=== PATIENT | female | born 2000 | race Caucasian/White ===

== ENCOUNTER 2024-03-25 18:48 | Inpatient (IN) ==
--- NOTE | 2024-03-25 19:30 | Emergency Department Note ---
Impression & Plan Sepsis, Pyelonephritis, Leukocytosis ED Provider Note NAME: ANKUR HAIRSTON AGE: 23 SEX: F : 2000 ARRIVES VIA: Walk-In INFORMANT: Patient ED PROVIDER(S): Douglas Gaviira DO CHIEF COMPLAINT: abdominal pain HPI: Patient is a 23-year-old female who presents to the ER for abdominal pain. She notes on Sunday she started with some dysuria, urgency, and frequency. Has been intermittent. She saw [facility] yesterday and was started on Cipro. Her pain was focal in the belly on the left mid abdomen. Has rotated slightly to the right consequently she came in. She did have a fever of 100.7. Denies any headache or change in vision. No chest pain or shortness of breath. No other exacerbating or remitting factors. No vaginal bleeding vaginal discharge. ADDITIONAL HISTORY OBTAINED: Per HPI Chronic Medical/Social Conditions Affecting Care: Per HPI PAST MEDICAL HISTORY:See Below PAST SURGICAL HISTORY:See Below FAMILY HISTORY:See Below SOCIAL HISTORY:See Below HOME MEDICATIONS:See Below ALLERGIES:See Below VITALS:See Below PHYSICAL EXAMINATION: GENERAL: Sitting up in bed, alert, well appearing, well nourished, no distress, non-toxic EYE EXAM: normal conjunctiva. OROPHARYNX: mucous membranes are moist NECK: supple, no nuchal rigidity, no adenopathy, non-tender LUNGS: Clear to auscultation. Normal chest wall mechanics HEART: no murmurs, S1 normal and S2 normal ABDOMEN: abdomen soft, TTP in Left mid abd, normo-active bowel sounds, no masses, no rebound or guarding. BACK: Back is symmetrical on inspection and there is no deformity, no midline tenderness, no CVA tenderness. SKIN: no rashes and no bruising UPPER EXTREMITIES: upper extremities are grossly normal. LOWER EXTREMITIES: No pitting edema. NEURO EXAM: Normal sensorium, cranial nerves II-XII grossly intact, normal speech, no gross weakness of arms, no gross weakness of legs. MEDICAL DECISION MAKING: Patient is a 23-year-old female who presents ER for the above-stated complaint. IV was established and blood work was obtained. Currently she is taking Cipro for UTI. Back pain and flank pain is getting worse. She was tachycardic with heart rate in 130s. Labs show leukocytosis of 17.9. No significant anemia. BMP along LFTs bilirubin was unremarkable. Lipase was normal. Pro-Ameya elevated at 4.5. Additional UA was contaminated as it was not a clean-catch and additional UA was obtained for culture. Patient was treated with IV Zosyn due to allergy. CT confirmed pyelonephritis. Patient was updated at bedside. Discussed with the hospitalist for further evaluation management treatment. Consults/Care Managements Discussions: Per MDM Triage Nursing notes reviewed. Limited review of prior medical records performed Vital Signs: reviewed and remarkable for tachy Differential diagnosis: Differential diagnoses includes but is not limited to gastritis, peptic ulcer disease, GERD, gallbladder disease, pancreatitis, small bowel obstruction, appendicitis, diverticulitis, hernia, urinary tract infection, torsion, /ectopic (if female), perforation, trauma, infectious. ER treatment provided: See below Diagnostics interpreted by me include EKG and cardiac monitoring as listed below: -Cardiac Monitoring: An order was placed for continuous cardiac monitoring. The monitor shows a rate of 120 with sinus rhythm. -ECG: none -Laboratory studies:Interpreted by me as stated above in MDM and shown below. Imaging studies: Xrays: As interpreted by me:none CTs show: CT of the abdomen pelvis per my preliminary interpretation showed no obvious obstruction CT abdomen pelvis shows pyelonephritis per radiology Procedures:none Critical Care: None Past Med/Surg History Problem List (Updated 03/25/24 @ 22:04 by Douglas Gaviria DO) Leukocytosis (Acute) Pyelonephritis (Acute) Sepsis (Acute) Social History Smoking Status: Never smoker Feels Safe at Home: Yes Allergies Allergies Allergy/AdvReac Type Severity Reaction Status Date / Time ceftriaxone Allergy Swelling Verified 03/25/24 20:43 of Lip/Tongue/Throat Home Meds Home Medications Medication Instructions Recorded Confirmed ciprofloxacin HCl 500 mg tablet 500 mg PO BID 03/25/24 03/25/24 ondansetron HCl 4 mg tablet 4 mg PO UD PRN Nausea 03/25/24 03/25/24 Results & Data (ED) Vital Signs Vital Signs - 24 hr 03/25/24 19:03 03/25/24 19:21 03/25/24 19:26 Temperature 37.2 C 37.4 C Temperature Source Oral Oral Pulse Rate 139 H 121 H Pulse Rate [Apical] 110 H Pulse Rhythm [Apical] Respiratory Rate 19 14 Respiratory Effort / Characteristics Non-Labored Spontaneous Respiratory Depth Normal Respiratory Pattern Regular Blood Pressure 107/75 Blood Pressure [Right Arm] 104/65 Blood Pressure Mean 85 Blood Pressure Mean [Right Arm] 78 Blood Pressure Position [Right Arm] Semi-fowlers Pulse Oximetry 96 96 Oxygen Delivery Method Room Air Room Air Sepsis Recent Fever Within 48 Hours Yes Sepsis New/Unexplained Change in Mental Status N/A Sepsis Action Taken by Nursing No Action Required 03/25/24 19:26 03/25/24 20:32 03/25/24 21:00 Temperature 36.6 C Temperature Source Oral Pulse Rate 111 H Pulse Rate [Apical] 106 H 99 H Pulse Rhythm [Apical] Regular Respiratory Rate 12 16 16 Respiratory Effort / Characteristics Non-Labored Spontaneous Non-Labored Spontaneous Respiratory Depth Normal Normal Respiratory Pattern Regular Regular Blood Pressure Blood Pressure [Right Arm] 93/61 L 111/65 Blood Pressure Mean Blood Pressure Mean [Right Arm] 71 80 Blood Pressure Position [Right Arm] Sitting Semi-fowlers Pulse Oximetry 96 97 99 Oxygen Delivery Method Room Air Room Air Room Air Sepsis Recent Fever Within 48 Hours Sepsis New/Unexplained Change in Mental Status Sepsis Action Taken by Nursing Laboratory Data 03/25/24 19:25 03/25/24 19:25 Lab Results 03/25/24 Range/Units 19:25 WBC 17.96 H (4.8-10.8) K/ul RBC 4.36 (4.20-5.40) M/uL Hgb 13.3 (12.0-16.0) g/dl Hct 38.8 (37.0-47.0) % MCV 89.0 (80.0-100.0) fL MCH 30.5 (25.0-34.0) pg MCHC 34.3 (32.0-36.0) g/dL RDW Std Deviation 40.7 (36.4-46.3) fL RDW Coeff of Lizzeth 12.3 (11.5-14.5) % Plt Count 218 (130-400) K/uL MPV 10.6 (9.4-12.4) fL Immature Gran % (Auto) 0.8 % Neut % (Auto) 86.4 % Lymph % (Auto) 8.7 % [place] % (Auto) 3.6 % Eos % (Auto) 0.1 % Baso % (Auto) 0.4 % Neut # (Auto) 15.52 H (1.40-6.50) K/uL Lymph # (Auto) 1.56 (1.20-3.40) K/uL [place] # (Auto) 0.65 H (0.11-0.59) K/uL Eos # (Auto) 0.02 (0.00-0.50) K/uL Baso # (Auto) 0.07 (0.00-0.20) K/uL Immature Gran # (Auto) 0.14 (0.01-0.20) K/uL Sodium 133 L (136-145) mmol/L Potassium 4.0 (3.5-5.1) mmol/L Chloride 101 (98-107) mmol/L Carbon Dioxide 21 (21-32) mmol/L Anion Gap 11 (3-11) BUN 15 (6-23) mg/dl Creatinine 1.23 H (0.6-1.2) mg/dl Est Cr Clr Drug Dosing 58.3 ml/min eGFR 62.93 BUN/Creatinine Ratio 12.2 (10-20) Glucose 88 (70-99(Fasting)) mg/dl Calcium 9.1 (8.6-10.3) mg/dl Total Bilirubin 0.5 (0.2-1.0) mg/dl AST 16 (13-39) U/L ALT 12 (7-52) U/L Alkaline Phosphatase 41 (34-104) U/L Total Protein 7.1 (6.0-8.3) gm/dl Albumin 3.6 (3.4-5.0) gm/dl Globulin 3.5 (2.5-4.0) gm/dl Albumin/Globulin Ratio 1.0 (0.9-2) Lipase 7 L (11-82) U/L Procalcitonin 4.69 H (0-0.5) ng/ml Urine Color Yellow Urine Appearance Cloudy A (Clear) Urine pH 6.0 (4.5-7.5) Ur Specific [place] 1.027 (1.000-1.030) Urine Protein 3+ H (Negative) Urine Glucose (UA) Negative (Negative) Urine Ketones 2+ H (Negative) Urine Blood 3+ H (Negative) Urine Nitrite Negative (Negative) Urine Bilirubin Negative (Negative) Urine Urobilinogen Positive H (Negative) Ur Leukocyte Esterase Trace H (Negative) Urine WBC (Auto) 11-20 H (0-5) /hpf Urine RBC (Auto) >20 H (0-2) /hpf U Hyaline Cast (Auto) 3-5 H (0-2) /lpf U Epithel Cells (Auto) 3-5 H (0-2) /hpf Urine Bacteria (Auto) None Seen (None Seen) Administered Medications Discontinued Medications Sodium Chloride (Nss) 1,000 mls @ 999 mls/hr IV .Q1H1M MARISOL Stop: 03/25/24 21:15 Last Admin: 03/25/24 20:35 Dose: 999 mls/hr Documented By: Infusion: 03/25/24 20:35 Dose: Infused Documented By: Admin: 03/25/24 19:45 Dose: 999 mls/hr Documented By: EMERY Ceftriaxone Sodium (Rocephin) 2,000 mg in 50 mls @ 100 mls/hr IV NOW STA Stop: 03/25/24 20:25 Last Admin: 03/25/24 20:43 Dose: Not Given Documented By: CL Piperacillin Sod/Tazobactam Sod (Zosyn) 4.5 gm in 100 mls @ 200 mls/hr IV NOW ONE; Protocol Stop: 03/25/24 21:17 Last Admin: 03/25/24 21:15 Dose: 200 mls/hr Documented By: EMERY Ioversol (Optiray 320 100ml) 93 ml IV ONCE ONE Stop: 03/25/24 20:11 Last Admin: 03/25/24 20:11 Dose: 93 ml Documented By: SHARI Ketorolac Tromethamine (Ketorolac Tromethamine 15 Mg/Ml Vial) 10 mg IV NOW ONE Stop: 03/25/24 19:28 Last Admin: 03/25/24 20:34 Dose: Not Given Documented By: CL Imaging Data Radiologist's Impression: Abdomen/Pelvis CT 03/25/24 19:09 Exam(s): CT ABDOMEN + PELVIS With Contrast IV Amt: 93 ml optiray 320 EXAM: CT Abdomen and Pelvis With Intravenous Contrast CLINICAL HISTORY: Reason for exam: flank pain. TECHNIQUE: Axial computed tomography images of the abdomen and pelvis with intravenous contrast. CTDI is 8.01 mGy and DLP is 390.77 mGy-cm. Automated exposure control was utilized for the study. A dose lowering technique was utilized adhering to the principles of ALARA. CONTRAST: Patient received 93 ml optiray 320 of IV contrast COMPARISON: No relevant prior studies available. FINDINGS: Lung bases: Unremarkable. No mass. No consolidation. ABDOMEN: Liver: Unremarkable. No mass. Gallbladder and bile ducts: Unremarkable. No calcified stones. No ductal dilation. Pancreas: Unremarkable. No mass. No ductal dilation. Spleen: Unremarkable. No splenomegaly. Adrenals: Unremarkable. No mass. Kidneys and ureters: There is heterogenous enhancement of the left kidney with slight surrounding edema suspicious for pyelonephritis. There is a nonobstructive 2 mm calyceal calculus in the lower pole the left kidney. Stomach and bowel: Unremarkable. No obstruction. No mucosal thickening. PELVIS: Appendix: No findings to suggest acute appendicitis. Bladder: Unremarkable. No mass. Reproductive: Unremarkable as visualized. ABDOMEN and PELVIS: Intraperitoneal space: Unremarkable. No free air. No significant fluid collection. Bones/joints: No acute fracture. No dislocation. Soft tissues: Unremarkable. Vasculature: Unremarkable. No abdominal aortic aneurysm. Lymph nodes: Unremarkable. No enlarged lymph nodes. IMPRESSION: There is heterogenous enhancement of the left kidney with slight surrounding edema suspicious for pyelonephritis. Electronically signed by: Harry Boyd MD 03/25/24 21:23 PM Discharge Plan Visit Data Chief Complaint: Flank Pain Stated Complaint: LT FLANK MOVED TO RT, UTI RECENTLY DIAGNOSED ED Provider: Douglas Gaviria Discharge Problem: Sepsis, Pyelonephritis, Leukocytosis Forms Stand Alone Forms: [facility] Prescriptions Prescriptions: No Action ondansetron HCl 4 mg tablet 4 mg PO UD PRN (Reason: Nausea) ciprofloxacin HCl 500 mg tablet 500 mg PO BID Referrals Referrals: PCP,NO [Physician] - Discharge Problem: Sepsis Qualifiers: Sepsis type: sepsis due to unspecified organism Sepsis acute organ dysfunction status: unspecified Qualified Code(s): A41.9 - Sepsis, unspecified organism Leukocytosis Qualifiers: Leukocytosis type: unspecified Qualified Code(s): D72.829 - Elevated white blood cell count, unspecified
[2024-03-25] MEDS: SODIUM CHLORIDE 0.9% 1,000 ML IV SCH (19:45)
[2024-03-25 19:46] LABS: Basophils # (auto) 0.07 K/uL (0.00-0.20); Basophils % (auto) 0.4 %; Eosinophils # (auto) 0.02 K/uL (0.00-0.50); Eosinophils % (auto) 0.1 %; Hematocrit (blood only) 38.8 % (37.0-47.0); Hemoglobin 13.3 g/dl (12.0-16.0); Immature Granulocytes # (auto) 0.14 K/uL (0.01-0.20); Immature Granulocytes % (auto) 0.8 %; Lymphocytes # (auto) 1.56 K/uL (1.20-3.40); Lymphocytes % (auto) 8.7 %; Mean Corpuscular Hemoglobin 30.5 pg (25.0-34.0); Mean Corpuscular Hgb Conc 34.3 g/dL (32.0-36.0); Mean Platelet Volume 10.6 fL (9.4-12.4); Monocytes # (auto) 0.65 K/uL (0.11-0.59); Monocytes % (auto) 3.6 %; Neutrophils # (auto) 15.52 K/uL (1.40-6.50); Neutrophils % (auto) 86.4 %; Platelet Count 218 K/uL (130-400); RDW Coefficient of Variation 12.3 % (11.5-14.5); RDW Standard Deviation 40.7 fL (36.4-46.3); Red Blood Count 4.36 M/uL (4.20-5.40); White Blood Count 17.96 K/ul (4.8-10.8)
[2024-03-25 19:47] LABS: Appearance Urine Cloudy (Clear); Bacteria Urine Automated None Seen (None Seen); Bilirubin Urine Negative (Negative); Blood Urine 3+ (Negative); Color Urine Yellow; Glucose Urine UA Negative (Negative); Ketones Urine 2+ (Negative); Leukocyte Esterase Urine Trace (Negative); Nitrite Urine Negative (Negative); Protein Urine 3+ (Negative); RBC Urine Automated >20 /hpf (0-2); Specific Gravity Urine 1.027 (1.000-1.030); Urobilinogen Urine Positive (Negative)
[2024-03-25 20:03] LABS: Albumin Level 3.6 gm/dl (3.4-5.0); BUN Creatinine Ratio 12.2 (10-20); Bilirubin,Total 0.5 mg/dl (0.2-1.0); Calcium 9.1 mg/dl (8.6-10.3); Creatinine Clr Calc Pharmacy 58.3 ml/min; Globulin 3.5 gm/dl (2.5-4.0); Total Protein 7.1 gm/dl (6.0-8.3)
[2024-03-25] MEDS: OPTIRAY 320 100ml IV ONE (20:11)
[2024-03-25] MEDS: KETOROLAC TROMETHAMINE 15 MG/ML VIAL IV ONE (20:34)
[2024-03-25] MEDS: cefTRIAXone SODIUM 2,000 MG/50 ML BAG IV STA (20:34)
[2024-03-25] MEDS: PIPERACILLIN/TAZOBACTAM 4.5 GM/100 ML BAG IV ONE (21:15)
--- NOTE | 2024-03-25 21:24 | CT Scan Report ---
Exam(s): CT ABDOMEN + PELVIS With Contrast IV Amt: 93 ml optiray 320 EXAM: CT Abdomen and Pelvis With Intravenous Contrast CLINICAL HISTORY: Reason for exam: flank pain. TECHNIQUE: Axial computed tomography images of the abdomen and pelvis with intravenous contrast. CTDI is 8.01 mGy and DLP is 390.77 mGy-cm. Automated exposure control was utilized for the study. A dose lowering technique was utilized adhering to the principles of ALARA. CONTRAST: Patient received 93 ml optiray 320 of IV contrast COMPARISON: No relevant prior studies available. FINDINGS: Lung bases: Unremarkable. No mass. No consolidation. ABDOMEN: Liver: Unremarkable. No mass. Gallbladder and bile ducts: Unremarkable. No calcified stones. No ductal dilation. Pancreas: Unremarkable. No mass. No ductal dilation. Spleen: Unremarkable. No splenomegaly. Adrenals: Unremarkable. No mass. Kidneys and ureters: There is heterogenous enhancement of the left kidney with slight surrounding edema suspicious for pyelonephritis. There is a nonobstructive 2 mm calyceal calculus in the lower pole the left kidney. Stomach and bowel: Unremarkable. No obstruction. No mucosal thickening. PELVIS: Appendix: No findings to suggest acute appendicitis. Bladder: Unremarkable. No mass. Reproductive: Unremarkable as visualized. ABDOMEN and PELVIS: Intraperitoneal space: Unremarkable. No free air. No significant fluid collection. Bones/joints: No acute fracture. No dislocation. Soft tissues: Unremarkable. Vasculature: Unremarkable. No abdominal aortic aneurysm. Lymph nodes: Unremarkable. No enlarged lymph nodes. IMPRESSION: There is heterogenous enhancement of the left kidney with slight surrounding edema suspicious for pyelonephritis. Electronically signed by: Harry Boyd MD 03/25/24 21:23 PM
[2024-03-25] MEDS ORDERED: POLYETHYLENE (MIRALAX) 17 GM PACK PO PRN (21:45)
[2024-03-25] MEDS ORDERED: MELATONIN 3 MG TAB PO PRN (21:45)
[2024-03-25] MEDS ORDERED: diphenhydrAMINE 50 MG/ML VIAL IV PRN (21:56)
--- NOTE | 2024-03-25 22:01 | History & Physical Report ---
Date of Service March 25, 2024 Assessment & Plan (1) Pyelonephritis: Plan: Pt is a 23 yo female with no significant PMH presenting to the hospital due to left flank pain. Sepsis secondary to pyelonephritis - pt with ongoing symptoms since Sunday; s/p outpatient cipro x1 day - on admission, pt with leukocytosis to 17, tachycardic originally to the 130s and down to the 90s after 2L of fluid, afebrile; lab work also significant for procal 4.69, lactate ordered on admission - CTAP showing enhancement of the left kidney consistent with pyelo - UA showing neg LE, no bacteria, 2+ blood; urine culture pending - blood cultures ordered (although collected after pt received ABX) - s/p zosyn x1; will continue upon admission (pt allergic to ceftriaxone) pending urine culture results - ordered another 1L for pt d/t ongoing tachycardia upon admission, encourage PO fluids TSERING - no prior blood work for review, but suspect pt with normal baseline kidney function - Cr 1.24 on admission; suspect pre-renal secondary to poor PO intake and infection as above - s/p 3L NS as above; encouraged PO intake - recheck BMP in AM Diet: regular Code: full VTE ppx: low risk- deferred Dispo: admit to med/surg (2) Sepsis: (3) TSERING (acute kidney injury): History of Present Illness Chief Complaint: left flank pain Primary Care Provider: [facility] Pt is a 23 yo female with no significant PMH presenting to the hospital due to left flank pain. Pt notes her symptoms began Sunday with fevers, chills, urinary burning/frequency, and left sided flank/abdominal pain. It continued through Sunday and Sunday which prompted her to seek care at [facility]. There, she gave a urine sample and was diagnosed with a kidney infection. She was given cipro. She has been taking that with improvement in her urinary symptoms but she noted her abdominal pain spread to her right side which prompted her to seek care at the ER. She notes a poor appetite over the last few days. She notes she has no significant PMH and only takes an OCP on a daily basis. In the ER, pt was given 2L of NS, zosyn x1, and toradol x1. Allergies Allergy/AdvReac Type Severity Reaction Status Date / Time ceftriaxone Allergy Swelling Verified 03/25/24 20:43 of Lip/Tongue/Throat Home Medications Medication Instructions Recorded Confirmed Type ciprofloxacin HCl 500 mg tablet 500 mg PO BID 03/25/24 03/25/24 History ondansetron HCl 4 mg tablet 4 mg PO UD PRN Nausea 03/25/24 03/25/24 History Past Med/Surg History Problem List (Updated 03/25/24 @ 22:16 by Rain Mendoza DO) TSERING (acute kidney injury) Leukocytosis (Acute) Pyelonephritis (Acute) Sepsis (Acute) Social History Smoking Status: Never smoker Second Hand Exposure: No; Do You Dip or Chew Tobacco: No; Tobacco Cessation Education Requested by Patient: No Hx Alcohol Use: Yes Alcohol type: wine Hx Substance Use: No Preferred Language: Urdu Communication Ability: Effective Mechanist Required: No Beliefs That Will Affect Care: None Current Living Situation: Other Current Living Situation Comment: [place] campus with roomate Other Information That Helps Us Care for You: No Feels Safe at Home: Yes Safety Concerns: Feels Safe At This Time Assistive Devices: None Review of Systems Review of Systems: As per HPI Physical Exam Constitutional: NAD, tachycardic. Eyes: Conjunctivae normal. Respiratory: CTA bilaterally. Non labored breathing. No rhonchi, wheezing, or crackles. Cardiovascular: RRR. No murmurs noted. No LE edema. Gastrointestinal (Abdomen): Nontender, +BS. No masses noted. Left tin's sign positive. Skin: No rashes or skin lesions noted. Neurologic: Sensation grossly intact. No FND appreciated. Psychiatric: Speech of normal pace and content. Mood and affect congruent. Results & Data Results & Data Vital Signs (Past 12 Hours) Vital Signs Temp Pulse Pulse Resp BP BP Pulse Ox 03/25/24 21:00 99 H 16 111/65 99 03/25/24 20:32 36.6 C 106 H 16 93/61 L 97 03/25/24 19:26 111 H 12 96 03/25/24 19:26 37.4 C 110 H 14 104/65 96 03/25/24 19:21 121 H 03/25/24 19:03 37.2 C 139 H 19 107/75 96 O2 Del Method 03/25/24 21:00 Room Air 03/25/24 20:32 Room Air 03/25/24 19:26 Room Air 03/25/24 19:26 Room Air 03/25/24 19:21 03/25/24 19:03 Room Air Supervising Physician Co-Signing Physician Notes Attending addendum: I have physically seen this patient, have supervised the medical residents activities, and agree with the H&P unless as otherwise noted. Assessment and Plan: Sepsis secondary to left sided pyelonephritis- Follow urine culture sensitivity Completed 1 day of outpatient ciprofloxacin CT scan with left-sided pyelonephritis Status post normal saline 2 L bolus in the ED Give additional 1 L normal saline bolus now Status post Zosyn 4.5 g IV from the ED, given due to allergic reaction history to ceftriaxone Continue Zosyn 4.5 g IV every 8 hours Renal insufficiency- Creatinine 1.23 on admission, with no baseline for comparison Status post 3 L normal saline bolus in total Repeat BMP in the a.m. Resident Activity Tracking Resident Involvement: Resident Care Provided Care Provided: Adult Hospital Medicine (2) Sepsis Sepsis acute organ dysfunction status: unspecified Sepsis type: sepsis due to unspecified organism Qualified Code(s): A41.9 - Sepsis, unspecified organism
[2024-03-25 22:17] LABS: Appearance Urine Clear (Clear); Bacteria Urine Automated None Seen (None Seen); Bilirubin Urine Negative (Negative); Blood Urine 2+ (Negative); Cast Urine Automated 0-2 /lpf (0-2); Color Urine Yellow; Epithelial Cell Urine Auto 0-2 /hpf (0-2); Glucose Urine UA Negative (Negative); Ketones Urine 2+ (Negative); Leukocyte Esterase Urine Negative (Negative); Nitrite Urine Negative (Negative); Protein Urine 2+ (Negative); Specific Gravity Urine > 1.045 (1.000-1.030); Urobilinogen Urine Negative (Negative); pH Urine 5.5 (4.5-7.5)
[2024-03-25] MEDS: SODIUM CHLORIDE 0.9% 1,000 ML IV ONE (22:57)
[2024-03-25 23:10] LABS: Pregnancy Test, Urine Negative (Negative)
[2024-03-25 23:50] VITALS: PULSE 83; RESP 16; O2SAT 98
[2024-03-26] MEDS: ACETAMINOPHEN 325 MG TAB PO PRN (00:02)
[2024-03-26] MEDS: PIPERACILLIN/TAZOBACTAM 4.5 GM/100 ML BAG IV SCH (01:55)
--- NOTE | 2024-03-26 05:11 | Billing Data ---
Date of Service March 26, 2024 Coding Level of Care Code 78959 INT INP/OBS CARE
[2024-03-26] MEDS: ONDANSETRON INJ 2 MG/ML 2 ML VIAL IV PRN (05:49)
[2024-03-26 07:51] VITALS: BP 107/71
[2024-03-26 08:07] LABS: Hematocrit (blood only) 33.6 % (37.0-47.0); Hemoglobin 11.1 g/dl (12.0-16.0); Mean Corpuscular Hemoglobin 29.9 pg (25.0-34.0); Mean Corpuscular Volume 90.6 fL (80.0-100.0); Mean Platelet Volume 10.3 fL (9.4-12.4); Platelet Count 190 K/uL (130-400); RDW Coefficient of Variation 12.6 % (11.5-14.5); RDW Standard Deviation 41.9 fL (36.4-46.3); Red Blood Count 3.71 M/uL (4.20-5.40); White Blood Count 11.97 K/ul (4.8-10.8)
[2024-03-26 08:35] LABS: BUN Creatinine Ratio 10.6 (10-20); Calcium 8.1 mg/dl (8.6-10.3); Creatinine Clr Calc Pharmacy 70.5 ml/min; Potassium 3.8 mmol/L (3.5-5.1)
[2024-03-26] MEDS: PATIENT'S OWN ORAL CONTRACEPTIVE PO SCH (09:32)
--- NOTE | 2024-03-26 09:33 | Discharge Summary ---
Date of Service March 26, 2024 Admission HPI Per Admitting Provider Pt is a 23 yo female with no significant PMH presenting to the hospital due to left flank pain. Pt notes her symptoms began Sunday with fevers, chills, urinary burning/frequency, and left sided flank/abdominal pain. It continued through Sunday and Sunday which prompted her to seek care at [facility]. There, she gave a urine sample and was diagnosed with a kidney infection. She was given cipro. She has been taking that with improvement in her urinary symptoms but she noted her abdominal pain spread to her right side which prompted her to seek care at the ER. She notes a poor appetite over the last few days. She notes she has no significant PMH and only takes an OCP on a daily basis. In the ER, pt was given 2L of NS, zosyn x1, and toradol x1. Admission Exam Per Admitting Provider Constitutional: NAD, tachycardic. Eyes: Conjunctivae normal. Respiratory: CTA bilaterally. Non labored breathing. No rhonchi, wheezing, or crackles. Cardiovascular: RRR. No murmurs noted. No LE edema. Gastrointestinal (Abdomen): Nontender, +BS. No masses noted. Left tin's sign positive. Skin: No rashes or skin lesions noted. Neurologic: Sensation grossly intact. No FND appreciated. Psychiatric: Speech of normal pace and content. Mood and affect congruent. Principal Diagnosis Pyelonephritis Discharge Exam Constitutional: well-appearing, no acute distress HEENT: NCAT, no conjunctival injection CV: clinically well perfused Resp: no increased WOB GI: nondistended MSK: no gross deformities appreciated Skin: warm, dry, no rash appreciated Neuro: alert, oriented, no focal neurologic deficit appreciated Discharge Data Allergies Allergy/AdvReac Type Severity Reaction Status Date / Time ceftriaxone Allergy Swelling Verified 03/25/24 20:43 of Lip/Tongue/Throat Consultations 03/25/24 21:21 ED Decision to Admit Stat Ordered Studies 03/25/24 19:09 CT abd pelvis IV con only Stat Hospital Course (1) Pyelonephritis: Pt is a 23 yo female with no significant PMH presenting to the hospital due to left flank pain. Sepsis secondary to pyelonephritis - pt with ongoing symptoms since Sunday; s/p outpatient cipro x1 day - on admission, pt with leukocytosis to 17, tachycardic originally to the 130s and down to the 90s after 2L of fluid, afebrile; lab work also significant for procal 4.69, lactate ordered on admission - CTAP showing enhancement of the left kidney consistent with pyelo - UA showing neg LE, no bacteria, 2+ blood; urine culture pending - blood cultures ordered (although collected after pt received ABX) - s/p zosyn x1; will continue upon admission (pt allergic to ceftriaxone) pending urine culture results Will discharge with Augmentin 875 for additional 9 days to complete 10 day cours e of abx TSERING Improved after fluid resuscitation (2) Sepsis: (3) TSERING (acute kidney injury): Total Time Total Time Spent Total Time Spent (In Minutes): <30 Discharge Plan Discharge Items Patient Disposition: Home - Self-Care Reason For Visit: PYELO Discharge Diagnosis: Pyelonephritis Activity: Resume your previous activity Non-emergency contact: Primary Care Provider Call non-emergency contact if: you have any medication questions, your symptoms worsen and you have a fever Follow-up/Referrals: [facility] [Primary Care Provider] - Diet: Regular Addtl Attending Provider Instructions: You were admitted to the hospital for urinary symptoms and fever. You were treated with antibiotics for a kidney infection and fluids for kidney injury. You willl be discharged with an additional 9 days of antibiotics. A discharge summary will be sent to your primary care physician to ensure continuity of care. Please bring this discharge summary with you to your next office appointment so that your provider can review it at that time. Follow-up appointments: Make a follow-up appointment with your PCP within the next week. It is very important that you follow up with them shortly after discharge from the hospital. Keep all your follow-up appointments as already scheduled. If you cannot make an appointment, notify your provider. Medications: Your medication list has been reviewed and reconciled upon discharge to ensure accuracy and continuity of care. An updated list of all your medications is included with your hospital discharge paperwork. Please review this list closely, and make note of any changes. We sent a new medication called Augmentin (amoxicillin-clavulanate) to your pharmacy. Take Augmentin (875mg) one tablet twice daily 9 days. If you have any issues filling these prescriptions, please call [phone] and ask to leave a message for Dr. Ganesh Sheth. Take your medications as instructed; do not skip a dose of your medicines. Make sure all of your doctors know every medicine you are taking (including grud-rjl-evqcidw medicines, vitamins, and supplements). Call your primary care provider before taking any new medicines (including dumt-foo-lhqkekt medicines, vitamins, and supplements), because some of these may interact with your current medications, or may make your symptoms worse. Tell your primary care provider if you cannot afford your medications. CONTACT YOUR PRIMARY CARE PROVIDER if you experience any of the following: Fever Increased pain Difficulty following your treatment plan, or difficulty taking medications CALL 911 OR GO TO THE EMERGENCY DEPARTMENT if you experience any of the f ollowing: Sudden, severe abdominal pain or nausea/vomiting Severe chest pain, or chest pain that radiates (moves) to your jaw or arm Sudden, severe shortness of breath or difficulty breathing Thank you for allowing us to participate in your care. Pending Studies at Discharge: No Stand-Alone Forms: My [facility] Medications and DC Order Prescriptions: New amoxicillin-pot clavulanate 875-125 mg tablet 1 tab PO BID Qty: 18 0RF Continued ondansetron HCl 4 mg tablet 4 mg PO UD PRN (Reason: Nausea) Discontinued ciprofloxacin HCl 500 mg tablet 500 mg PO BID Discharge Orders: Discharge Order (Routine); Ordered 03/26/24 Ordered By: Ganesh Cuevas/Other Patient Handouts: UTIs, ED Kidney Infection (Adult Female) Admission Data Admit Date/Time: 03/25/24 21:45 Attending Provider: Douglas Jose Admit Provider: Rain Mendoza Primary Care Provider: [facility] Other Providers: Dawson Serrato Other Interventions: Discharge Summary Assessment (RN) Last Done: 03/26/24 12:48 Supervising Physician Co-Signing Physician Notes I personally examined the patient and verified all gale points of history and exam, discussed case, and agree with decision making with Dr Sheth feeling better feels up to going home, answered all questions to the best of my ability vitals noted nad heent nc at mmm breathing unlabored no accessory muscles good e ffort skin no rashes no pallor or icterus pyelonephritis w sepsis POA - now doing better, sepsis resolved. cultures negative thus far - d/w pt anticipate high prob they'll be negative due to being on cipro before. (also admitting noted abx here started first adding to prob of no growth) -> d/w pt possibility of bacteria resistant to cipro vs just septic process getting worse before better - > but more prudent to adjust abx mechanism. feels good to go home - home on augmentin. f/u if worsening. outlined typical course of improvement after pyelo. otherwise as above Resident Activity Tracking Resident Involvement: Resident Care Provided Care Provided: Adult Hospital Medicine
[2024-03-26 11:49] VITALS: TEMP 99.1
--- NOTE | 2024-03-26 18:07 | Billing Data ---
Date of Service March 26, 2024 Coding Level of Care Code 81388 IN/OBS DISCH 30 MIN/LESS
== END 2024-03-26 13:52 | disposition home or self-care (01) | DRG 872 ==
LOC: ED 18:48 → 3N 21:45 → SUATTDRO 21:45 → 3N 23:01

== ENCOUNTER 2024-06-23 01:03 | Inpatient (IN) ==
[2024-06-23] MEDS: ONDANSETRON INJ 2 MG/ML 2 ML VIAL IV STA (01:29)
[2024-06-23] MEDS: SODIUM CHLORIDE 0.9% 1,000 ML IV ONE (01:29)
[2024-06-23 01:47] LABS: Basophils # (auto) 0.05 K/uL (0.00-0.20); Basophils % (auto) 0.3 %; Eosinophils # (auto) 0.11 K/uL (0.00-0.50); Eosinophils % (auto) 0.6 %; Hematocrit (blood only) 37.2 % (37.0-47.0); Hemoglobin 12.6 g/dl (12.0-16.0); Immature Granulocytes # (auto) 0.13 K/uL (0.01-0.20); Immature Granulocytes % (auto) 0.7 %; Lymphocytes # (auto) 1.55 K/uL (1.20-3.40); Lymphocytes % (auto) 8.5 %; Mean Corpuscular Hemoglobin 29.4 pg (25.0-34.0); Mean Corpuscular Hgb Conc 33.9 g/dL (32.0-36.0); Mean Corpuscular Volume 86.9 fL (80.0-100.0); Mean Platelet Volume 9.7 fL (9.4-12.4); Monocytes # (auto) 0.86 K/uL (0.11-0.59); Monocytes % (auto) 4.7 %; Neutrophils # (auto) 15.52 K/uL (1.40-6.50); Neutrophils % (auto) 85.2 %; Platelet Count 311 K/uL (130-400); RDW Coefficient of Variation 12.3 % (11.5-14.5); RDW Standard Deviation 38.8 fL (36.4-46.3); Red Blood Count 4.28 M/uL (4.20-5.40); White Blood Count 18.22 K/ul (4.8-10.8)
[2024-06-23 01:59] LABS: BUN Creatinine Ratio 14.6 (10-20); Bilirubin,Total 0.4 mg/dl (0.2-1.0); Calcium 9.2 mg/dl (8.6-10.3); Creatinine Clr Calc Pharmacy 84.9 ml/min; Potassium 3.6 mmol/L (3.5-5.1)
[2024-06-23 02:10] LABS: Pregnancy Test, Serum Negative (Negative)
--- NOTE | 2024-06-23 02:19 | Emergency Department Note ---
Impression & Plan Pyelonephritis ED Provider Note NAME: ANKUR HAIRSTON AGE: 23 SEX: F : 2000 ARRIVES VIA: Walk-In INFORMANT: Patient, ED PROVIDER(S): Darryn Larkin MD CHIEF COMPLAINT: Left flank pain, vomiting HPI: This is a 23-year-old female sent for left flank pain and vomiting. Patient states that she was treated for UTI last week. She had improvement symptoms after antibiotics which then recurred patient went back to [facility] and has been on a second of antibiotics. She notes that she still has symptoms, now new left flank pain. She has had nausea with vomiting. She reports this feels like her previous pyelonephritis. She was admitted previously for this. ROS: See above HPI for pertinent positives & negatives. A total of 10 systems reviewed and were otherwise negative. PAST MEDICAL HISTORY: See Below PAST SURGICAL HISTORY: See Below FAMILY HISTORY: See Below SOCIAL HISTORY: See Below HOME MEDICATIONS: See Below ALLERGIES: See Below VITALS: See Below PHYSICAL EXAMINATION: General: resting comfortably in no acute distress Head: Normocephalic and atraumatic Eyes: Normal inspection, extraocular muscles intact Ear, nose, throat: Normal external exam Neck: Normal range of motion Respiratory: lungs clear to auscultation bilaterally Cardiovascular: Regular rate/rhythm, no murmur GI: soft, nontender, no guarding or rebound Extremities: nontender, moves all extremities Neuro: The patient awake and alert, appropriately conversive, no focal deficits, symmetric faces Skin: Warm, dry, and intact MEDICAL DECISION MAKING: This is a 23-year-old female presenting for left flank pain/vomiting. Patient was initially reported as hypotensive and tachycardic, pressures were 70s over 50s and pulse rate of 147. -I came to bedside, did a quick FAST which was negative for intra-abdominal fluid. -Otherwise patient's symptoms appear consistent with her pyelonephritis. Will get urinalysis, basic blood work and fluids. -Significant leukocytosis is noted to 18. Otherwise no significant electrolyte disturbances or transaminitis. Lactic acid not elevated. -Will give Zosyn at this time, due to allergy from ceftriaxone -After fluids, patient heart rate has come down from 140s down to 90s. Her blood pressures uptrending into the 100. At this time no need for Levophed -Patient urinalysis does confirm signs of UTI -Clinically her symptoms consistent with pyelonephritis. Will admit for IV antibiotics Differential diagnosis: Pyelonephritis, septic shock, renal colic, cystitis Independent History obtained from: [facility] interpreted by me: ECG: None Cardiac Monitoring: An order was placed for continuous cardiac monitoring. The monitor shows a rate of 92 with sinus rhythm. Critical Care Note: I have personally spent 45 minutes of critical care time in the direct management of this patient. This includes bedside care, interpretation of diagnostic studies, and testing, discussion with consultants, patient, and family members, and other required patient management activities. This 45 minutes is in excess of all separately billable procedures. Past Med/Surg History Problem List (Updated 06/23/24 @ 06:57 by Darryn Larkin MD) Pyelonephritis (Acute) Medical History (Updated 06/23/24 @ 06:57 by Darryn Larkin MD) TSERING (acute kidney injury) Leukocytosis Sepsis Social History Smoking Status: Never smoker Second Hand Exposure: No; Do You Dip or Chew Tobacco: No; Hx Alcohol Use: Yes Alcohol type: wine Hx Substance Use: No Preferred Language: Dutch Communication Ability: Effective [employer] Required: No Beliefs That Will Affect Care: None Current Living Situation: Other Current Living Situation Comment: [place] campus with roomate Feels Safe at Home: Yes Assistive Devices: None Allergies Allergies Allergy/AdvReac Type Severity Reaction Status Date / Time ceftriaxone Allergy Swelling Verified 06/23/24 01:24 of Lip/Tongue/Throat Home Meds Home Medications Medication Instructions Recorded Confirmed norethindrone acetate 1 mg-ethinyl 1 tab PO DAILY 06/23/24 06/23/24 estradiol 20 mcg tablet (Junel) Results & Data (ED) Vital Signs Vital Signs - 24 hr 06/23/24 01:08 06/23/24 01:21 06/23/24 01:30 Temperature 37.5 C Temperature Source Temporal Artery Scan Pulse Rate 147 H 133 H Pulse Rate [Apical] 112 H Pulse Rhythm Regular Pulse Strength Normal Respiratory Rate 17 20 Respiratory Effort / Characteristics Non-Labored Spontaneous Non-Labored Respiratory Depth Normal Normal Respiratory Pattern Regular Blood Pressure 76/55 L Blood Pressure [Right Arm] 97/56 L Blood Pressure Mean 62 Blood Pressure Mean [Right Arm] 69 Blood Pressure Position Sitting Pulse Oximetry 98 100 Oxygen Delivery Method Room Air Room Air Sepsis Recent Fever Within 48 Hours No Sepsis New/Unexplained Change in Mental Status N/A Sepsis Action Taken by Nursing No Action Required 06/23/24 02:15 Temperature Temperature Source Pulse Rate Pulse Rate [Apical] 113 H Pulse Rhythm Pulse Strength Respiratory Rate 20 Respiratory Effort / Characteristics Non-Labored Respiratory Depth Normal Respiratory Pattern Blood Pressure Blood Pressure [Right Arm] 106/67 Blood Pressure Mean Blood Pressure Mean [Right Arm] 80 Blood Pressure Position Pulse Oximetry 96 Oxygen Delivery Method Room Air Sepsis Recent Fever Within 48 Hours Sepsis New/Unexplained Change in Mental Status Sepsis Action Taken by Nursing Laboratory Data 06/23/24 01:11 06/23/24 01:11 Lab Results 06/23/24 06/23/24 06/23/24 Range/Units 01:11 01:20 01:30 WBC 18.22 H (4.8-10.8) K/ul RBC 4.28 (4.20-5.40) M/uL Hgb 12.6 (12.0-16.0) g/dl Hct 37.2 (37.0-47.0) % MCV 86.9 (80.0-100.0) fL MCH 29.4 (25.0-34.0) pg MCHC 33.9 (32.0-36.0) g/dL RDW Std Deviation 38.8 (36.4-46.3) fL RDW Coeff of Lizzeth 12.3 (11.5-14.5) % Plt Count 311 (130-400) K/uL MPV 9.7 (9.4-12.4) fL Immature Gran % (Auto) 0.7 % Neut % (Auto) 85.2 % Lymph % (Auto) 8.5 % [place] % (Auto) 4.7 % Eos % (Auto) 0.6 % Baso % (Auto) 0.3 % Neut # (Auto) 15.52 H (1.40-6.50) K/uL Lymph # (Auto) 1.55 (1.20-3.40) K/uL [place] # (Auto) 0.86 H (0.11-0.59) K/uL Eos # (Auto) 0.11 (0.00-0.50) K/uL Baso # (Auto) 0.05 (0.00-0.20) K/uL Immature Gran # (Auto) 0.13 (0.01-0.20) K/uL Sodium 135 L (136-145) mmol/L Potassium 3.6 (3.5-5.1) mmol/L Chloride 104 (98-107) mmol/L Carbon Dioxide 22 (21-32) mmol/L Anion Gap 9 (3-11) BUN 13 (6-23) mg/dl Creatinine 0.89 (0.6-1.2) mg/dl Est Cr Clr Drug Dosing 84.9 ml/min eGFR 92.79 BUN/Creatinine Ratio 14.6 (10-20) Glucose 108 H (70-99(Fasting)) mg/dl Lactate (0.4-2.0) mmol/L Calcium 9.2 (8.6-10.3) mg/dl Total Bilirubin 0.4 (0.2-1.0) mg/dl Direct Bilirubin 0.0 (0-0.2) mg/dl AST 15 (13-39) U/L ALT 10 (7-52) U/L Alkaline Phosphatase 41 (34-104) U/L Total Protein 7.0 (6.0-8.3) gm/dl Albumin 4.0 (3.4-5.0) gm/dl Procalcitonin 0.09 (0-0.5) ng/ml HCG, Qual Negative (Negative) Urine Color Urine Appearance (Clear) Urine pH (4.5-7.5) Ur Specific Moon (1.000-1.030) Urine Protein (Negative) Urine Glucose (UA) (Negative) Urine Ketones (Negative) Urine Blood (Negative) Urine Nitrite (Negative) Urine Bilirubin (Negative) Urine Urobilinogen (Negative) Ur Leukocyte Esterase (Negative) Urine WBC (Auto) (0-5) /hpf Urine RBC (Auto) (0-2) /hpf U Hyaline Cast (Auto) (0-2) /lpf U Epithel Cells (Auto) (0-2) /hpf Urine Bacteria (Auto) (None Seen) Urine Mucus (None Prsent) Adenovirus (PCR) Not Detected (NotDetected) B. pertussis DNA (PCR) Not Detected (NotDetected) B.parapertussis DNA PCR Not Detected (NotDetected) C. pneumoniae DNA (PCR) Not Detected (NotDetected) Coronavirus OC43 (PCR) Not Detected (NotDetected) Coronavirus HKU1 (PCR) Not Detected (NotDetected) Coronavirus 229E (PCR) Not Detected (NotDetected) SARS-CoV-2 (PCR) Not Detected (NotDetected) Coronavirus NL63 (PCR) Not Detected (NotDetected) Human Metapneumovir PCR Not Detected (NotDetected) Influenza Type A (PCR) Not Detected (NotDetected) Influenza Type B (PCR) Not Detected (NotDetected) M. pneumoniae (PCR) Not Detected (NotDetected) Parainfluenza 1 (PCR) Not Detected (NotDetected) Parainfluenza 2 (PCR) Not Detected (NotDetected) Parainfluenza 3 (PCR) Not Detected (NotDetected) Parainfluenza 4 (PCR) Not Detected (NotDetected) RSV (PCR) Not Detected (NotDetected) Entero/Rhino (PCR) Not Detected (NotDetected) 06/23/24 06/23/24 Range/Units 01:48 02:13 WBC (4.8-10.8) K/ul RBC (4.20-5.40) M/uL Hgb (12.0-16.0) g/dl Hct (37.0-47.0) % MCV (80.0-100.0) fL MCH (25.0-34.0) pg MCHC (32.0-36.0) g/dL RDW Std Deviation (36.4-46.3) fL RDW Coeff of Lizzeth (11.5-14.5) % Plt Count (130-400) K/uL MPV (9.4-12.4) fL Immature Gran % (Auto) % Neut % (Auto) % Lymph % (Auto) % [place] % (Auto) % Eos % (Auto) % Baso % (Auto) % Neut # (Auto) (1.40-6.50) K/uL Lymph # (Auto) (1.20-3.40) K/uL [place] # (Auto) (0.11-0.59) K/uL Eos # (Auto) (0.00-0.50) K/uL Baso # (Auto) (0.00-0.20) K/uL Immature Gran # (Auto) (0.01-0.20) K/uL Sodium (136-145) mmol/L Potassium (3.5-5.1) mmol/L Chloride (98-107) mmol/L Carbon Dioxide (21-32) mmol/L Anion Gap (3-11) BUN (6-23) mg/dl Creatinine (0.6-1.2) mg/dl Est Cr Clr Drug Dosing ml/min eGFR BUN/Creatinine Ratio (10-20) Glucose (70-99(Fasting)) mg/dl Lactate 1.3 (0.4-2.0) mmol/L Calcium (8.6-10.3) mg/dl Total Bilirubin (0.2-1.0) mg/dl Direct Bilirubin (0-0.2) mg/dl AST (13-39) U/L ALT (7-52) U/L Alkaline Phosphatase (34-104) U/L Total Protein (6.0-8.3) gm/dl Albumin (3.4-5.0) gm/dl Procalcitonin (0-0.5) ng/ml HCG, Qual (Negative) Urine Color Yellow Urine Appearance Clear (Clear) Urine pH 5.5 (4.5-7.5) Ur Specific Moon 1.018 (1.000-1.030) Urine Protein 1+ H (Negative) Urine Glucose (UA) Negative (Negative) Urine Ketones Negative (Negative) Urine Blood Trace H (Negative) Urine Nitrite Negative (Negative) Urine Bilirubin Negative (Negative) Urine Urobilinogen Negative (Negative) Ur Leukocyte Esterase 2+ H (Negative) Urine WBC (Auto) >50 H (0-5) /hpf Urine RBC (Auto) 0-2 (0-2) /hpf U Hyaline Cast (Auto) 6-10 H (0-2) /lpf U Epithel Cells (Auto) 0-2 (0-2) /hpf Urine Bacteria (Auto) None Seen (None Seen) Urine Mucus Present A (None Prsent) Adenovirus (PCR) (NotDetected) B. pertussis DNA (PCR) (NotDetected) B.parapertussis DNA PCR (NotDetected) C. pneumoniae DNA (PCR) (NotDetected) Coronavirus OC43 (PCR) (NotDetected) Coronavirus HKU1 (PCR) (NotDetected) Coronavirus 229E (PCR) (NotDetected) SARS-CoV-2 (PCR) (NotDetected) Coronavirus NL63 (PCR) (NotDetected) Human Metapneumovir PCR (NotDetected) Influenza Type A (PCR) (NotDetected) Influenza Type B (PCR) (NotDetected) M. pneumoniae (PCR) (NotDetected) Parainfluenza 1 (PCR) (NotDetected) Parainfluenza 2 (PCR) (NotDetected) Parainfluenza 3 (PCR) (NotDetected) Parainfluenza 4 (PCR) (NotDetected) RSV (PCR) (NotDetected) Entero/Rhino (PCR) (NotDetected) Administered Medications Parenteral Electrolytes (Plasma-Lyte A Ph 7.4) 1,000 mls @ 125 mls/hr IV .Q8H MARISOL Stop: 06/23/24 13:58 Last Admin: 06/23/24 06:48 Dose: 125 mls/hr Documented By: TERRA Discontinued Medications Sodium Chloride (Nss) 1,000 mls @ 999 mls/hr IV .Q1H1M ONE Stop: 06/23/24 02:20 Last Infusion: 06/23/24 02:17 Dose: Infused Documented By: Admin: 06/23/24 01:29 Dose: 999 mls/hr Documented By: BRITNI Piperacillin Sod/Tazobactam Sod (Zosyn) 4.5 gm in 100 mls @ 200 mls/hr IV NOW ONE; Protocol Stop: 06/23/24 02:48 Last Infusion: 06/23/24 03:32 Dose: Infused Documented By: Admin: 06/23/24 02:58 Dose: 200 mls/hr Documented By: BRITNI Ondansetron HCl (Ondansetron Inj 2 Mg/Ml 2 Ml Vial) 4 mg IV NOW STA Stop: 06/23/24 01:21 Last Admin: 06/23/24 01:29 Dose: 4 mg Documented By: BRITNI Imaging Data Radiologist's Impression: Abdomen/Pelvis CT 06/23/24 03:12 EXAM: CT abd pelvis wo con CLINICAL HISTORY: N/V hx UTI, and pyelonephritis. TECHNIQUE: Non-contrast CT of the abdomen and pelvis was performed, with the following protocol: axial images, and reconstructed coronal and sagittal images. No intravenous contrast was administered. One of the following dose reduction techniques was utilized for this exam: Automated exposure control, adjustment of the mA and/or kV according to patient size, and use of iterative reconstruction. COMPARISON: Comparison is made with prior 03/25/2024. FINDINGS: Abdomen: Liver: Normal in size, shape, and density. No focal lesions, cysts, or masses were identified. Gallbladder and Biliary System: The gallbladder is normal in size and shape. No wall thickening, pericholecystic fluid, or gallstones were identified. Pancreas: Pancreatic head, body, and tail are visualized and appear normal in size and density. No pancreatic masses or calcifications were noted. Spleen: Normal in size, shape, and density. No splenic lesions or masses were identified. Kidneys and Adrenal Glands: The right kidney is normal. Left kidney shows parenchymal bridging, suggestive of a double collecting system The lower zone of left renal parenchyma shows asymmetrical thinning. There is also mild dilatation of the lower calyceal syetme on the left. There is minimal fullness of the left renal pelvis and pelvic ureteric junction showing mild mural thickening and surrounding fatty stranding. The lower pole of the kidney. Left lower calyceal tiny stone measuring about 3 mm of the average density of 218 HU. Appendix: The appendix is normal in size without ivy appendiceal fat stranding and without an appendicolith. No evidence of appendiceal abscess or perforation. Pelvis: Urinary Bladder: Normal in contour and wall thickness. No intraluminal lesions. Uterus: Normal in size and contour. No masses or abnormal thickening. Ovaries: Not well visualized but no gross abnormalities noted. Vagina: Normal in contour and wall thickness. Cervix: No evidence of mass or abnormal thickening. Peritoneal and Retroperitoneal Structures: No free fluid or abnormal fluid collections were identified within the abdomen or pelvis. No lymphadenopathy was noted. Bowel: The visualized bowel loops are normal in caliber and appearance. No evidence of bowel obstruction or wall thickening. Bones and Soft Tissues: Pelvic bones and soft tissues are unremarkable. No fractures or abnormal masses were identified. IMPRESSION: 1. Left nephrolithiasis. Stable. 2. 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 3. Focal asymmetrical parenchymal thinning with mild dilatation of the left renal pelvis and lower calyx along with left renal pelvis wall thickening (stable appearance). Electronically signed by Brigid Noyola 06-23-2024 04:41 AM Discharge Plan Visit Data Chief Complaint: Flank Pain Stated Complaint: SUSPECTED KIDNEY INFECTION ED Provider: Darryn Larkin Discharge Problem: Pyelonephritis Patient Disposition: Admitted As Inpatient Discharge Instructions Interventions: ED Discharge Assessment Last Done: 06/23/24 05:21
[2024-06-23 02:24] LABS: Adenovirus PCR Not Detected (NotDetected); Bordetella parapertussis PCR Not Detected (NotDetected); Bordetella pertussis PCR Not Detected (NotDetected); Chlamydia pneumoniae PCR Not Detected (NotDetected); Coronavirus 229E PCR Not Detected (NotDetected); Coronavirus CoV-2 (COVID19)PCR Not Detected (NotDetected); Coronavirus HKU1 PCR Not Detected (NotDetected); Coronavirus NL63 PCR Not Detected (NotDetected); Coronavirus OC43PCR Not Detected (NotDetected); Human Metapneumovirus PCR Not Detected (NotDetected); Influenza A PCR Not Detected (NotDetected); Influenza B PCR Not Detected (NotDetected); Mycoplasma pneumoniae PCR Not Detected (NotDetected); Parainfluenza Virus 1 PCR Not Detected (NotDetected); Parainfluenza Virus 2 PCR Not Detected (NotDetected); Parainfluenza Virus 3 PCR Not Detected (NotDetected); Parainfluenza Virus 4 PCR Not Detected (NotDetected); Respiratory Syncytial VirusPCR Not Detected (NotDetected); Rhinovirus/Enterovirus PCR Not Detected (NotDetected)
[2024-06-23 02:42] LABS: Appearance Urine Clear (Clear); Bacteria Urine Automated None Seen (None Seen); Bilirubin Urine Negative (Negative); Blood Urine Trace (Negative); Color Urine Yellow; Epithelial Cell Urine Auto 0-2 /hpf (0-2); Glucose Urine UA Negative (Negative); Ketones Urine Negative (Negative); Leukocyte Esterase Urine 2+ (Negative); Mucus Urine Present (None Prsent); Nitrite Urine Negative (Negative); Protein Urine 1+ (Negative); RBC Urine Automated 0-2 /hpf (0-2); Specific Gravity Urine 1.018 (1.000-1.030); Urobilinogen Urine Negative (Negative); WBC Urine Automated >50 /hpf (0-5); pH Urine 5.5 (4.5-7.5)
[2024-06-23] MEDS: PIPERACILLIN/TAZOBACTAM 4.5 GM/100 ML BAG IV ONE (02:58)
--- NOTE | 2024-06-23 03:52 | History & Physical Report ---
Date of Service June 23, 2024 Assessment & Plan (1) Pyelonephritis: (2) Sepsis: Plan Pt is a 23 yo female with no significant PMH presenting to the hospital due to left flank pain, nausea and vomiting Pyelonephritis/ Sepsis - ongoing symptoms for a week. Left flank pain, dysuria, chills and nausea. Recent outpatient txt with Nitrofurantoin for an UTI - Recent hospitalization on 03/2024 due to Pyelonephritis - [place] [facility] [place] On admission: Leukocytes 18.22 + tachycardia - Lactate: 1.3, Cr. 0.89 - CT Abdomen pending - Procal pending - S/p Zosyn in ED - Continue Zosyn q8hr given patient allergic to Ceftriaxone - Urine culture pending - IV Plasmalyte 125 ml/hr x 1 bad added on admission - Zofran as needed for nausea - Tylenol as needed for pain - CBC, BMP AM Diet: Regular Code: Full code VTE ppx: low risk, ambulation Dispo: Admit to med/surg History of Present Illness Chief Complaint: Patient is 23 y/o PMH with no past medical history here due to nausea, left flank pain and chills. Symptoms started last week with dysuria, and frequency. She went to [facility] where they diagnosed her with an UTI. She completed 5 days fo Nitrofurantoin. She states overnight she developed chills, nausea with vomiting and worsening left flank pain now is 5/10. She refers poor appetite as well. Denied any abdominal pain. Denied any chest pain, runny nose, palpitations or S OB. Denied smoking. Refers drinking alcohol socially. Patient was recently admitted on the hospital due to Pyelonephritis, on 04/13. ED course: 1L of NS, IV Zosyn. CBC remarkable for leukocytosis. Sodium of 135. Cr. 0.89. Lactate 1.3. UA: Trace blood, positive leukocyte esterase and WBC Primary Care Provider: [facility] Allergies Allergy/AdvReac Type Severity Reaction Status Date / Time ceftriaxone Allergy Swelling Verified 06/23/24 01:24 of Lip/Tongue/Throat Home Medications Medication Instructions Recorded Confirmed Type No Known Home Medications 06/23/24 06/23/24 History Past Med/Surg History Problem List (Updated 04/26/24 @ 00:07 by Misti Hamilton) Pyelonephritis (Acute) Medical History (Updated 04/26/24 @ 00:07 by Background Daemon) TSERING (acute kidney injury) Leukocytosis Sepsis Social History Smoking Status: Never smoker Second Hand Exposure: No; Do You Dip or Chew Tobacco: No; Hx Alcohol Use: Yes Alcohol type: wine Hx Substance Use: No Preferred Language: Occitan Communication Ability: Effective Director Of Materials Required: No Beliefs That Will Affect Care: None Current Living Situation: Other Current Living Situation Comment: Lives on campus with roomate Feels Safe at Home: Yes Assistive Devices: None Review of Systems Review of Systems: as per HPI Physical Exam Constitutional: well developed and well nourished; no acute distress Eyes: no conjunctival abnormality Respiratory: normal respiratory effort, lungs clear to auscultation Auscultation: no crackles, no rhonchi and no wheezes Cardiovascular: Rate/Rhythm: regular rhythm and + tachycardic Heart Sounds: normal S1 and normal S2 Extremities: no edema Gastrointestinal (Abdomen): normal bowel sounds, soft, nontender, no hepatosplenomegaly Left tin's sign positive. Neurologic: patellar DTR's 2+ bilat, sensation intact Results & Data Results & Data Vital Signs (Past 12 Hours) Vital Signs Temp Pulse Pulse Resp BP BP Pulse Ox 06/23/24 02:15 113 H 20 106/67 96 06/23/24 01:30 112 H 20 97/56 L 100 06/23/24 01:21 133 H 06/23/24 01:08 37.5 C 147 H 17 76/55 L 98 O2 Del Method 06/23/24 02:15 Room Air 06/23/24 01:30 Room Air 06/23/24 01:21 06/23/24 01:08 Room Air Resident Activity Tracking Resident Involvement: Resident Care Provided Care Provided: Adult Hospital Medicine (2) Sepsis Sepsis acute organ dysfunction status: unspecified Sepsis type: sepsis due to unspecified organism Qualified Code(s): A41.9 - Sepsis, unspecified organism
--- NOTE | 2024-06-23 04:41 | CT Scan Report ---
EXAM: CT abd pelvis wo con CLINICAL HISTORY: N/V hx UTI, and pyelonephritis. TECHNIQUE: Non-contrast CT of the abdomen and pelvis was performed, with the following protocol: axial images, and reconstructed coronal and sagittal images. No intravenous contrast was administered. One of the following dose reduction techniques was utilized for this exam: Automated exposure control, adjustment of the mA and/or kV according to patient size, and use of iterative reconstruction. COMPARISON: Comparison is made with prior 03/25/2024. FINDINGS: Abdomen: Liver: Normal in size, shape, and density. No focal lesions, cysts, or masses were identified. Gallbladder and Biliary System: The gallbladder is normal in size and shape. No wall thickening, pericholecystic fluid, or gallstones were identified. Pancreas: Pancreatic head, body, and tail are visualized and appear normal in size and density. No pancreatic masses or calcifications were noted. Spleen: Normal in size, shape, and density. No splenic lesions or masses were identified. Kidneys and Adrenal Glands: The right kidney is normal. Left kidney shows parenchymal bridging, suggestive of a double collecting system The lower zone of left renal parenchyma shows asymmetrical thinning. There is also mild dilatation of the lower calyceal syetme on the left. There is minimal fullness of the left renal pelvis and pelvic ureteric junction showing mild mural thickening and surrounding fatty stranding. The lower pole of the kidney. Left lower calyceal tiny stone measuring about 3 mm of the average density of 218 HU. Appendix: The appendix is normal in size without ivy appendiceal fat stranding and without an appendicolith. No evidence of appendiceal abscess or perforation. Pelvis: Urinary Bladder: Normal in contour and wall thickness. No intraluminal lesions. Uterus: Normal in size and contour. No masses or abnormal thickening. Ovaries: Not well visualized but no gross abnormalities noted. Vagina: Normal in contour and wall thickness. Cervix: No evidence of mass or abnormal thickening. Peritoneal and Retroperitoneal Structures: No free fluid or abnormal fluid collections were identified within the abdomen or pelvis. No lymphadenopathy was noted. Bowel: The visualized bowel loops are normal in caliber and appearance. No evidence of bowel obstruction or wall thickening. Bones and Soft Tissues: Pelvic bones and soft tissues are unremarkable. No fractures or abnormal masses were identified. IMPRESSION: 1. Left nephrolithiasis. Stable. 2. 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 3. Focal asymmetrical parenchymal thinning with mild dilatation of the left renal pelvis and lower calyx along with left renal pelvis wall thickening (stable appearance). Electronically signed by Brigid Noyola 06-23-2024 04:41 AM
[2024-06-23] MEDS ORDERED: ACETAMINOPHEN 325 MG TAB PO PRN (05:59)
[2024-06-23] MEDS: PLASMA-LYTE A 1,000 ML IV SCH (06:48)
[2024-06-23] MEDS: PIPERACILLIN/TAZOBACTAM 4.5 GM/100 ML BAG IV SCH (08:04)
[2024-06-23] MEDS: JUNEL FE SCH (08:05)
[2024-06-23] MEDS: ACETAMINOPHEN 500 MG TAB PO PRN (09:30)
--- NOTE | 2024-06-23 10:36 | Hospitalist Progress Note ---
Date of Service June 23, 2024 Assessment & Plan (1) Pyelonephritis: Plan Diet: regular Code: Full code VTE ppx: low risk, ambulation Dispo: Med/Surg, no anticipated discharge needs Admission and Anticipated Discharge Date Admission Date: June 23, 2024 Supervising Physician Co-Signing Physician Notes ATTESTATION I also saw the patient and confirmed gale portions of the history and exam. I agree with the impression and plan in the resident documentation, and as summarized below. This morning, the patient is without complaints. She still has some left-sided CVA tenderness, but this seems improved compared to yesterday. As noted previously, the patient had admission for similar back in March. Last week, she was treated with a 5-day course of nitrofurantoin for more typical UTI symptoms. She was also seen at [facility] on Sunday at which time she provided a urine sample; in reviewing the results on her patient portal (patient shows me the results on her phone), GC and Chlamydia were negative, urine culture demonstrated growth of normal urogenital neo. Prior to her admission back in March, she had no history of UTIs otherwise. EXAM 97/64, 109, 16, 36.7, 97% room air pleasant and alert. No distress appreciated. She is seated in bed, talking to her boyfriend is also in the room. Heart slightly tachycardic but regular. Respirations are nonlabored. Mild left-sided CVA tenderness abdomen soft and nontender. No rebound appreciated. DATA Labs White blood cell count 18.22, hemoglobin 12.6 Sodium 135, potassium 3.6, BUN 13, creatinine 0.89 Qualitative hCG is negative. Urinalysis shows greater than 50 white blood cells, 2+ leuk esterase. Serology PCR was negative for all tested pathogens. Imaging CT scan of the abdomen pelvis upon admission shows left nephrolithiasis, stable, double collecting system on the left kidney, focal asymmetrical parenchymal thinning with mild dilatation of the left renal pelvis along the lower calyx with left renal pelvis wall thickening. Micro Urine culture collected at 0213 hours today is pending. IMPRESSION & PLAN Sepsis Pyelonephritis Clinically improved/stable. Continue antibiotics pending urine culture. Renal ultrasound from this morning is pending. Given this was her second episode within a short period of time, will recommend outpatient neurology follow-up. Additional per resident documentation Subjective Patient seen at bedside this AM. Reportedly feeling a bit better. Nausea has resolved. No fevers. Does feel cold. No proceeding GI illnesses. Review of Systems 2 Review of Systems: as per HPI Physical Exam 2 Physical Exam: Gen: well appearing patient in NAD HEENT: AT NC MMM Resp: CTAB no wheezing no increased work of breathing CV: tachycardic, regular rhythm, clinically well perfused Abd: soft, non-tender, non-distended, slight left sided CVA tenderness, no suprapubic tenderness or right sided CVA tenderness MSK: no obvious deformities Skin: no rashes or bruising Neuro: alert and oriented Psych: appropriate mood and affect Results & Data Results & Data Vital Signs (Past 12 Hours) Vital Signs Temp Pulse Pulse Pulse Resp BP BP 06/23/24 07:28 36.7 C 109 H 16 97/64 L 06/23/24 07:24 37.3 C 102 H 16 103/67 06/23/24 05:21 92 H 20 108/63 06/23/24 05:13 95 H 06/23/24 04:32 97 H 20 97/62 L 06/23/24 02:15 113 H 20 106/67 06/23/24 01:30 112 H 20 97/56 L 06/23/24 01:21 133 H 06/23/24 01:08 37.5 C 147 H 17 76/55 L Pulse Ox O2 Del Method 06/23/24 07:28 97 Room Air 06/23/24 07:24 97 Room Air 06/23/24 05:21 97 Room Air 06/23/24 05:13 06/23/24 04:32 97 Room Air 06/23/24 02:15 96 Room Air 06/23/24 01:30 100 Room Air 06/23/24 01:21 06/23/24 01:08 98 Room Air Laboratory Results 06/23/24 01:11 06/23/24 01:11 Resident Activity Tracking Resident Involvement: Resident Care Provided Care Provided: Adult Hospital Medicine
[2024-06-23] MEDS: ONDANSETRON INJ 2 MG/ML 2 ML VIAL IV PRN (16:10)
--- NOTE | 2024-06-23 22:29 | Ultrasound Report ---
Renal ultrasound History: Duplicated left renal collecting system Comparison: None Technique: Grayscale and color Doppler ultrasound of the kidneys and urinary bladder performed Findings: Right kidney: The right kidney measures 12.5 cm in length. No visualized mass or hydronephrosis. Left kidney: The left kidney measures 11.1 cm in length. No visualized mass. There is a duplicated left renal collecting system. The inferior moiety has mild renal pelvic fullness. No dilation of the superior moiety collecting system. A hyperechoic focus measuring 2 mm at the mid left kidney is consistent with a nonobstructing stone. Impression: Duplicated left renal collecting system with mild pelvic fullness of the inferior moiety. There is a 2 mm nonobstructing mid left renal stone. Electronically signed by Finesse Santo 06-23-2024 10:29 PM
[2024-06-24 07:02] LABS: Basophils # (auto) 0.05 K/uL (0.00-0.20); Basophils % (auto) 0.4 %; Eosinophils # (auto) 0.15 K/uL (0.00-0.50); Eosinophils % (auto) 1.2 %; Hematocrit (blood only) 32.5 % (37.0-47.0); Hemoglobin 10.9 g/dl (12.0-16.0); Immature Granulocytes # (auto) 0.08 K/uL (0.01-0.20); Immature Granulocytes % (auto) 0.6 %; Lymphocytes # (auto) 2.66 K/uL (1.20-3.40); Mean Corpuscular Hemoglobin 29.9 pg (25.0-34.0); Mean Corpuscular Hgb Conc 33.5 g/dL (32.0-36.0); Mean Corpuscular Volume 89.3 fL (80.0-100.0); Mean Platelet Volume 9.8 fL (9.4-12.4); Monocytes # (auto) 0.74 K/uL (0.11-0.59); Monocytes % (auto) 5.8 %; Neutrophils # (auto) 8.99 K/uL (1.40-6.50); Platelet Count 271 K/uL (130-400); RDW Coefficient of Variation 12.6 % (11.5-14.5); RDW Standard Deviation 41.1 fL (36.4-46.3); Red Blood Count 3.64 M/uL (4.20-5.40); White Blood Count 12.67 K/ul (4.8-10.8)
[2024-06-24 07:16] LABS: BUN Creatinine Ratio 10.3 (10-20); Calcium 8.5 mg/dl (8.6-10.3); Creatinine Clr Calc Pharmacy 77.9 ml/min
--- NOTE | 2024-06-24 07:39 | Hospitalist Progress Note ---
Date of Service June 24, 2024 Assessment & Plan (1) Pyelonephritis: (2) Low hemoglobin: Plan: acute, 12.6 -> 10.9, asymptomatic and no signs of bleeding - likely dilutional due to receiving IVF yesterday 06/23/24, will continue to monitor VS - CBC in AM Plan Diet: regular Code: Full code VTE ppx: low risk, ambulation Dispo: Med/Surg, no anticipated discharge needs Admission and Anticipated Discharge Date Admission Date: June 23, 2024 Supervising Physician Co-Signing Physician Notes Attending attestation Pt seen and examined in concert with Dr. Leyva. In agreement with the documented findings as noted in the resident documentation with any exceptions or additions as noted here. Reports ongoing improvement in overall fatigue and malaise, though still with decreased appetite overall. On examination, S1/S2 nl RRR no MCG. CTAB. Abd NT/ND BS+ve. VS as noted WBC 12.67, hgb 10.9, Cr 0.97. UCx +ve for e. coli, speciation pending Pyelonephritis - continue pip/tazo until speciation for narrowing. Continue ondansetron for nausea. Trend CBC/CMP tomorrow. Else see resident documentation as noted. Subjective Ankita was seen and evaluated at bedside this AM. Reportedly continues feeling a bit better, nausea has improved, still taking zofran. BP slightly low but pt is reportedly asymptomatic. Denies particular abdominal or back pain/discomfort. Was curious about renal US results, informed patient of L renal collecting system duplication which pt was aware of, and pt was wondering if 2mm non- obstructing stone was a potential cause of her L kidney infection, was informed that likely rather due to duplication. Encouraged to let nursing know if she starts feeling pain, discomfort, nausea/vomiting. Still no fevers, body aches, or chills. Review of Systems Review of Systems: denies lightheadedness, dizziness, nausea/vomiting, SOB, b/l LE numbness/tingling/pain. Physical Exam Physical Exam: Gen: well appearing patient in NAD HEENT: AT NC MMM Resp: CTAB no wheezing no increased work of breathing CV: RRR, no m/r/g, radial pulses 2+ b/l, post tib pulses 2+ b/l Abd: soft, non-tender, non-distended, no CVA tenderness b/l, no suprapubic tenderness MSK: no obvious deformities, 5/5 strength throughout Skin: no rashes or bruising Neuro: alert and oriented Psych: appropriate mood and affect Results & Data Results & Data Vital Signs (Past 12 Hours) Vital Signs Temp Pulse Resp BP Pulse Ox O2 Del Method 06/24/24 07:29 36.7 C 89 16 82/53 L 99 Room Air Resident Activity Tracking Resident Involvement: Resident Care Provided Care Provided: Adult Hospital Medicine
--- NOTE | 2024-06-25 06:49 | Hospitalist Progress Note ---
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 - white count has resolved, creatinine 0.92 - continue on Zosyn IV, transition - UCx showing E. coli, will likely hear back about sensitivities tomorrow 06/26/24, change abx accordingly - zofran for nausea - followup with urology on discharge - CBC and BMP in AM (2) Low hemoglobin: Plan: acute, stable at 10.9, asymptomatic and no signs of bleeding - likely dilutional due to receiving IVF 06/23/24, will continue to monitor VS - CBC in AM Plan Diet: regular Code: Full code VTE ppx: low risk, ambulation Dispo: Med/Surg, no anticipated discharge needs Admission and Anticipated Discharge Date Admission Date: June 23, 2024 Supervising Physician Co-Signing Physician Notes Attending attestation Pt seen and examined in concert with Dr. Leyva. In agreement with the documented findings as noted in the resident documentation with any exceptions or additions as noted here. Continued improvement in overall fatigue and malaise; still with decreased appetite overall. On examination, S1/S2 nl RRR no MCG. CTAB. Abd NT/ND BS+ve. VS as noted WBC 7.41, hgb 10.9, Cr 0.92. UCx +ve for e. coli, speciation pending Pyelonephritis - continue pip/tazo until speciation for narrowing. Continue ondansetron for nausea. Else see resident documentation as noted. Yo Luciano was seen and evaluated at bedside this AM. Reportedly continues to feel better, no particular pain or discomfort. BP continues to be at baseline. Denies particular abdominal or back pain/discomfort. Continues to have no fevers, body aches, or chills. Informed patient that E. coli abx sensitivities will take another day to result, patient a bit dejected but accepting. Denies any additional concerns or questions at this time. Review of Systems Review of Systems: denies lightheadedness, dizziness, nausea/vomiting, SOB, b/l LE numbness/tingling/pain. Physical Exam Physical Exam: Gen: A&Ox3, well appearing, in NAD HEENT: NC/AT, moist mucus membranes, EOM intact, anicteric sclerae Resp: clear to auscultation b/l, no wheezing, no increased work of breathing CV: RRR, no m/r/g, radial pulses 2+ b/l, post tib pulses 2+ b/l Abd: soft, non-tender, non-distended, no CVA tenderness b/l, no suprapubic tenderness MSK: no obvious deformities, 5/5 strength throughout Skin: no rashes or bruising Neuro: speech intact, no facial droop Psych: appropriate mood and affect Results & Data Results & Data Vital Signs (Past 12 Hours) Vital Signs Temp Pulse Resp BP Pulse Ox O2 Del Method 06/24/24 19:31 36.6 C 84 12 101/66 99 Room Air Resident Activity Tracking Resident Involvement: Resident Care Provided Care Provided: Adult Hospital Medicine
[2024-06-25 06:59] LABS: Hematocrit (blood only) 33.4 % (37.0-47.0); Hemoglobin 10.9 g/dl (12.0-16.0); Mean Corpuscular Hemoglobin 29.4 pg (25.0-34.0); Mean Corpuscular Hgb Conc 32.6 g/dL (32.0-36.0); Mean Platelet Volume 9.9 fL (9.4-12.4); Platelet Count 299 K/uL (130-400); RDW Coefficient of Variation 12.6 % (11.5-14.5); Red Blood Count 3.71 M/uL (4.20-5.40); White Blood Count 7.41 K/ul (4.8-10.8)
[2024-06-25 07:20] LABS: BUN Creatinine Ratio 9.8 (10-20); Calcium 8.8 mg/dl (8.6-10.3); Creatinine Clr Calc Pharmacy 82.2 ml/min; Potassium 3.9 mmol/L (3.5-5.1)
[2024-06-25 19:40] VITALS: RESP 12
[2024-06-26 06:39] LABS: Hematocrit (blood only) 33.9 % (37.0-47.0); Hemoglobin 11.5 g/dl (12.0-16.0); Mean Corpuscular Hemoglobin 30.1 pg (25.0-34.0); Mean Corpuscular Hgb Conc 33.9 g/dL (32.0-36.0); Mean Corpuscular Volume 88.7 fL (80.0-100.0); Mean Platelet Volume 9.9 fL (9.4-12.4); Platelet Count 329 K/uL (130-400); RDW Coefficient of Variation 12.6 % (11.5-14.5); Red Blood Count 3.82 M/uL (4.20-5.40); White Blood Count 6.94 K/ul (4.8-10.8)
[2024-06-26 06:52] VITALS: BP 98/66; PULSE 85; TEMP 98.1; O2SAT 98
[2024-06-26 06:57] LABS: BUN Creatinine Ratio 10.2 (10-20); Creatinine Clr Calc Pharmacy 77.1 ml/min; Potassium 3.8 mmol/L (3.5-5.1)
--- NOTE | 2024-06-26 07:29 | Hospitalist Progress Note ---
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 - white count has resolved, creatinine 0.92 -> 0.98 - UCx showing E. coli, sensitivities showing ESBL - continue on Zosyn IV, transition to ertapenem q24, 14 days total since starting Zosyn - consent for PICC line - ID consult placed - zofran for nausea - followup with urology on discharge - CBC and BMP in AM (2) Low hemoglobin: Plan: acute, stable at 10.9, asymptomatic and no signs of bleeding - likely dilutional due to receiving IVF 06/23/24, will continue to monitor VS - CBC in AM Plan Diet: regular Code: Full code VTE ppx: low risk, ambulation Dispo: Med/Surg, no anticipated discharge needs Admission and Anticipated Discharge Date Admission Date: June 23, 2024 Yo Luciano was seen and evaluated at bedside this AM. Reportedly continues to feel better, no particular pain or discomfort. BP slightly lower than baseline, asymptomatic. Denies particular abdominal or back pain/discomfort. Continues to have no fevers, body aches, or chills. Informed patient that E. coli abx sensitivities will take another day to result, patient a bit dejected but accepting. Denies any additional concerns or questions at this time. Review of Systems Review of Systems: denies lightheadedness, dizziness, nausea/vomiting, SOB, b/l LE numbness/tingling/pain. Physical Exam Physical Exam: Gen: A&Ox3, well appearing, in NAD HEENT: NC/AT, moist mucus membranes, EOM intact, anicteric sclerae Resp: clear to auscultation b/l, no wheezing, no increased work of breathing CV: RRR, no m/r/g, radial pulses 2+ b/l, post tib pulses 2+ b/l Abd: soft, non-tender, non-distended, no CVA tenderness b/l, no suprapubic tenderness MSK: no obvious deformities, 5/5 strength throughout Skin: no rashes or bruising Neuro: speech intact, no facial droop Psych: appropriate mood and affect Results & Data Results & Data Vital Signs (Past 12 Hours) Vital Signs Temp Pulse Resp BP Pulse Ox O2 Del Method 06/26/24 06:52 36.7 C 85 12 98/66 L 98 Room Air 06/25/24 19:39 36.6 C 79 12 100/67 99 Room Air
--- NOTE | 2024-06-26 11:19 | Urology Consultation ---
Date of Consultation June 26, 2024 Assessment & Plan (1) Pyelonephritis: 23-year-old female admitted for sepsis and pyelonephritis. She is afebrile, hemodynamically stable Patient clinically and subjectively improving Labs reviewedWBC has trended down to 6.94, creatinine 0.98 Urine culture with E. coli, MDR, resistant to fluoroquinolones and others Remains on Zosyn while inpatient CT showed no focal obstruction; nonobstructing left renal calculus No acute intervention indicated Continue antibiotics and supportive care Recommend discharge patient with appropriate antibiotics for complicated UTI when medically stable Urine culture shows sensitivity to Bactrim, which has good kidney penetration, can discharge with 14 days or defer to ID for recommendations Will arrange outpatient follow-up with our service will sign off, please contact our service with any additional questions or concerns History of Present Illness Reason for Consultation: duplicate collecting system, pyelo, ESBL pattern Requesting Physician: Dr. Carlos Attending Physician: Finesse Onofre MD History of Present Illness This is a 23-year-old female with prior history of pyelonephritis who presented to the emergency department on 06/23/2024 for evaluation of left flank pain and vomiting. She was recently treated for a UTI 1 week prior. She had recurrence of symptoms after completing antibiotics and went back to [facility] for evaluation. She was started on a second course of antibiotics, but symptoms worsened with onset of left flank pain, nausea and vomiting. On arrival to ED, she was afebrile, tachycardic and hypotensive. Lab work showed white count of 18.22, hemoglobin 12.6, creatinine 0.89, sodium 135. Urine negative. Respiratory PCR panel negative. Lactate 1.3. Urinalysis showed trace blood, 2+ LE, 0-2 RBC, >50 WBC, negative for bacteria. Workup included CT abdomen pelvis without contrast which showed duplicated left collecting system with mild dilatation of the lower calyceal system on the left and mild fullness of the left renal pelvis and ureteropelvic junction with mild urothelial thickening and stranding. A nonobstructing left renal calculus noted. Patient responded to fluid resuscitation in the ED. She was admitted to the hospital medicine service for IV antibiotics. Urology is consulted today for duplicated system and pyelonephritis, MDR. Chart review: Labs reviewedcreatinine 0.98, WBC 6.94, hemoglobin 11.5. Urine culture with E. coli, multidrug resistance pattern. Currently on Zosyn. Patient seen and examined at bedside this morning. She is awake and sitting up in bed. Subjectively feeling well. No fever, chills, nausea or vomiting. Flank pain has largely resolved. Voiding spontaneously. No urinary symptoms at present. Previous episode of pyelonephritis in March 2024. Denies UTI hx prior to March. Allergies Allergy/AdvReac Type Severity Reaction Status Date / Time ceftriaxone Allergy Swelling Verified 06/23/24 01:24 of Lip/Tongue/Throat Home Medications Medication Instructions Recorded Confirmed Type norethindrone acetate 1 mg-ethinyl 1 tab PO DAILY 06/23/24 06/23/24 History estradiol 20 mcg tablet (June) Patient History Medical History TSERING (acute kidney injury) Leukocytosis Sepsis Social History Smoking Status: Never smoker Second Hand Exposure: No; Do You Dip or Chew Tobacco: No; Hx Alcohol Use: Yes Alcohol type: wine Hx Substance Use: No Preferred Language: Kazakh Communication Ability: Effective Quality Liaison Required: Voice Beliefs That Will Affect Care: None Current Living Situation: Parent and Other Current Living Situation Comment: On campus with roomates. Other Information That Helps Us Care for You: No Feels Safe at Home: Yes Safety Concerns: Feels Safe At This Time Assistive Devices: None Review of Systems Review of Systems: All systems reviewed & are unremarkable except as noted in HPI & below Physical Exam Constitutional: well developed and well nourished; no acute distress Respiratory: normal respiratory effort; no respiratory distress and no labored breathing Gastrointestinal (Abdomen): Inspection/Auscultation: abdomen normal to inspection Musculoskeletal: Head/Neck/Chest: normocephalic Neurologic: moves all extremities and awake Psychiatric: Orientation: alert and oriented x 3 Genitourinary: no CVA tenderness Results & Data Vital Signs (Past 12 Hours) Vital Signs Temp Pulse Resp BP Pulse Ox O2 Del Method 06/26/24 06:52 36.7 C 85 12 98/66 L 98 Room Air PG Care Time/CCT Total # of Minutes Spent Total Time Spent with Patient: Total time spent is greater than 50% in coordination of care (as documented) at patient's floor/unit and/or counseling patient: Coding Level of Care Code 25453 IN/OBS CONSULT LVL 4,60M Diagnoses Pyelonephritis N12
--- NOTE | 2024-06-26 12:56 | Infectious Disease Consult ---
Date of Consultation June 26, 2024 Assessment & Plan (1) Pyelonephritis: Plan Problems: #Pyelonephritis #Ceftriaxone allergy Micro: 06/23 UCx: E coli (R amox/clav, cefazolin, cipro, levo. I amp/sul. 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 Has been on Zosyn since 06/23, with resolution of leukocytosis. Recommendations: -Can transition to TMP/SMX 2 DS tabs PO BID to complete 7 day course of antibiotics through 06/29/24 for pyelonephritis Discussed with primary team. Will sign off. Consultation Information This patient recommendation is based on a telemedicine consult request which was completed asynchronously through chart review and information provided by the primary physician. The patient was not seen or examined today. The evaluation is consultative in nature and all patient care and treatment decisions can either be accepted or rejected by the patient's primary hospital-based treating physician using their own independent medical judgment for their patient. Foreclosure Field Inspector contact information: Please call [facility] Center . (Phone Number For Physician Use Only) Time Spent Reviewing Chart: 21 - 30 minutes History of Present Illness Reason for Consultation: Pyelonephritis Attending Physician: Finesse Onofre MD History of Present Illness 23 yo F with a history of pyelonephritis (03/2024) who presented 06/23/24 with nausea, L flank pain, chills, dysuria, urinary frequency. She went to [facility] where she was diagnosed with a UTI and took 5 days of nitrofurantoin. Overnight, she developed chills, N/V, worsening L flank pain. On presentation, T 37.5, HR 147, BP 76/55. Labs with WBC 18.22, UA with >50 WBCs, RVP negative. CT AP wo contrast showed L nephrolithiasis, double collecting system on L kidney, minimal fullness of L renal pelvis and pelvic ureteric junction showing mild mural thickening and surrounding fatty stranding. Pt was started on Zosyn. UCx grew E coli. Leukocytosis has resolved. Allergies Allergy/AdvReac Type Severity Reaction Status Date / Time ceftriaxone Allergy Swelling Verified 06/23/24 01:24 of Lip/Tongue/Throat Home Medications Medication Instructions Recorded Confirmed Type norethindrone acetate 1 mg-ethinyl 1 tab PO DAILY 06/23/24 06/23/24 History estradiol 20 mcg tablet (Junel) Patient History Medical History TSERING (acute kidney injury) Leukocytosis Sepsis Social History Smoking Status: Never smoker Second Hand Exposure: No; Do You Dip or Chew Tobacco: No; Hx Alcohol Use: Yes Alcohol type: wine Hx Substance Use: No Preferred Language: Maltese Communication Ability: Effective Chief Revenue Officer Required: Voice Beliefs That Will Affect Care: None Current Living Situation: Parent and Other Current Living Situation Comment: On campus with roomates. Other Information That Helps Us Care for You: No Feels Safe at Home: Yes Safety Concerns: Feels Safe At This Time Assistive Devices: None Review of System Pt was not seen Physical Exam Physical Exam: Pt was not seen Results & Data Vital Signs (Past 12 Hours) Vital Signs Temp Pulse Resp BP Pulse Ox O2 Del Method 06/26/24 06:52 36.7 C 85 12 98/66 L 98 Room Air Laboratory Results Short CBC 06/26/24 Range/Units 05:49 WBC 6.94 (4.8-10.8) K/ul Hgb 11.5 L (12.0-16.0) g/dl Hct 33.9 L (37.0-47.0) % Plt Count 329 (130-400) K/uL BMP 06/26/24 05:49 Sodium 138 Potassium 3.8 Chloride 107 Carbon Dioxide 25 BUN 10 Creatinine 0.98 Glucose 77 Calcium 9.0 Diagnostic Findings Renal Ultrasound 06/23/24 10:37 Renal ultrasound History: Duplicated left renal collecting system Comparison: None Technique: Grayscale and color Doppler ultrasound of the kidneys and urinary bladder performed Findings: Right kidney: The right kidney measures 12.5 cm in length. No visualized mass or hydronephrosis. Left kidney: The left kidney measures 11.1 cm in length. No visualized mass. There is a duplicated left renal collecting system. The inferior moiety has mild renal pelvic fullness. No dilation of the superior moiety collecting system. A hyperechoic focus measuring 2 mm at the mid left kidney is consistent with a nonobstructing stone. Impression: Duplicated left renal collecting system with mild pelvic fullness of the inferior moiety. There is a 2 mm nonobstructing mid left renal stone. Electronically signed by Finesse Santo 06-23-2024 10:29 PM Medications Administered Current Inpatient Medications Acetaminophen (Acetaminophen 500 Mg Tab) 1,000 mg PO Q8H PRN PRN Reason: Pain or Fever Stop: 07/23/24 09:13 Last Admin: 06/23/24 09:30 Dose: 1,000 mg Piperacillin Sod/Tazobactam Sod (Zosyn) 4.5 gm in 100 mls @ 25 mls/hr IV Q8H MARISOL; Protocol Stop: 07/03/24 08:59 Last Admin: 06/26/24 09:44 Dose: 25 mls/hr 06/09 - (Patient's Own Med) 1 each N/A DAILY MARISOL Stop: 07/23/24 08:59 Last Admin: 06/26/24 09:40 Dose: 1 each Ondansetron HCl (Ondansetron Inj 2 Mg/Ml 2 Ml Vial) 4 mg IV Q6H PRN PRN Reason: Nausea Stop: 07/23/24 05:58 Last Admin: 06/23/24 16:10 Dose: 4 mg
--- NOTE | 2024-06-26 15:13 | Discharge Summary ---
Date of Service June 26, 2024 Admission Exam Per Admitting Provider Constitutional: well developed and well nourished; no acute distress Eyes: no conjunctival abnormality Respiratory: normal respiratory effort, lungs clear to auscultation Auscultation: no crackles, no rhonchi and no wheezes Cardiovascular: Rate/Rhythm: regular rhythm and + tachycardic Heart Sounds: normal S1 and normal S2 Extremities: no edema Gastrointestinal (Abdomen): normal bowel sounds, soft, nontender, no hepatosplenomegaly Left tin's sign positive. Neurologic: patellar DTR's 2+ bilat, sensation intact Principal Diagnosis L pyelonephritis Discharge Exam Gen: A&Ox3, well appearing, in NAD HEENT: NC/AT, moist mucus membranes, EOM intact, anicteric sclerae Resp: clear to auscultation b/l, no wheezing, no increased work of breathing CV: RRR, no m/r/g, radial pulses 2+ b/l, post tib pulses 2+ b/l Abd: soft, non-tender, non-distended, no CVA tenderness b/l, no suprapubic tenderness MSK: no obvious deformities, 5/5 strength throughout Skin: no rashes or bruising Neuro: speech intact, no facial droop Psych: appropriate mood and affect Discharge Data Allergies Allergy/AdvReac Type Severity Reaction Status Date / Time ceftriaxone Allergy Swelling Verified 06/23/24 01:24 of Lip/Tongue/Throat Consultations 06/23/24 03:48 ED Decision to Admit Stat 06/26/24 08:48 Consult Urology Routine 06/26/24 12:05 Consult Infectious Diseases Routine Ordered Studies 06/23/24 03:12 CT abd pelvis wo con Stat 06/23/24 10:37 US Kidney Bladder [US renal/blad retro comp] Routine Hospital Course (1) Pyelonephritis: Recurrent L pyelonephritis, 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 - white count has resolved, creatinine stable - UCx showing E. coli, sensitivities to zosyn, bactrim, carbapenems, and cephalosporins -> transitioning from Zosyn to Bactrim DS as she can take this orally and will not need IV - ID rec to transition to Bactrim DS, 2 tabs BID through 06/29/24 - followup with urology on discharge (2) Low hemoglobin: acute, stable at 10.9, asymptomatic and no signs of bleeding - likely dilutional due to receiving IVF 06/23/24, continue to monitor VS Plan Diet: regular Code: Full code VTE ppx: low risk, ambulation Dispo: Med/Surg, no anticipated discharge needs Total Time Total Time Spent Total Time Spent (In Minutes): 40 Discharge Plan Discharge Items Patient Disposition: Home - Self-Care Reason For Visit: PYELONEPHRITIS Discharge Diagnosis: pyelonephritis, L Activity: Resume your previous activity Non-emergency contact: Primary Care Provider Call non-emergency contact if: your symptoms worsen and your pain is not controlled Follow-up/Referrals: [facility] [Primary Care Provider] - (PLEASE FOLLOW UP WITH [facility] IN 7-10 DAYS AFTER DISCHARGE.) Diet: Regular Addtl Attending Provider Instructions: You were evaluated and treated at [facility] for Left pyelonephritis due to UTI (urinary tract infection) which has ascended from the bladder to the L kidney. You have been on IV Zosyn (piperacillin-tazobactam) for broad-spectrum coverage, resulting in good effect in reducing white blood cell count. Urine culture came back as E. coli, sensitivity to bactrim, carbapenems, Zosyn, and cephalosporins -> narrowed antibiotic to BACTRIM DS per ID recommendation for appropriate treatment, which is oral so you can be discharged home to complete the course without IV. ID recommending Bactrim DS, 2 tabs twice a day through 06/29/24. We recommend followup with urology as an outpatient as your L renal collecting system duplication may be a complicating factor in your UTIs. Please follow up with your PCP for urology referral if necessary. Pending Studies at Discharge: No Stand-Alone Forms: My [facility] [employer], Smoking Cessation Medications and DC Order Prescriptions: New sulfamethoxazole-trimethoprim [Bactrim DS] 800-160 mg tablet 2 tab PO BID 4 Days Qty: 16 0RF Continued norethindrone ac-eth estradiol [06/09 (21)] 1-20 mg-mcg Tablet 1 tab PO DAILY Discharge Orders: Discharge Order (Routine); Ordered 06/26/24 Ordered By: Nilo Cuevas/Other Patient Handouts: Anatomy of the Female Urinary Tract, UTIs, Healthy Kidneys, Kidney Problems, How Your Kidneys Work, Kidney Infec Dc Admission Data Admit Date/Time: 06/23/24 04:17 Attending Provider: Finesse Onofre Admit Provider: Estee Estrella Primary Care Provider: [facility] Other Providers: Dawson Serrato; Finesse Wise Other Interventions: Discharge Summary Assessment (RN) Last Done: 06/26/24 15:12 Supervising Physician Co-Signing Physician Notes Attending attestation Pt seen and examined in concert with Dr. Leyva. In agreement with the documented findings as noted in the resident documentation with any exceptions or additions as noted here. Continued improvement in overall fatigue and malaise; still with decreased appetite overall. On examination, S1/S2 nl RRR no MCG. CTAB. Abd NT/ND BS+ve. VS as noted WBC 6.94, hgb 11.5, Cr 0.98. UCx +ve for e. coli, c/s as noted Pyelonephritis - ID and urology consult - per ID recommendations, will complete course of TMP/SMX 2 tab BID for 7 days with outpatient urology follow up. Else see resident documentation as noted. Total attending physician time spent with this patient's care on the day of discharge: 35 minutes. Resident Activity Tracking Resident Involvement: Resident Care Provided Care Provided: Adult Hospital Medicine
== END 2024-06-26 16:29 | disposition home or self-care (01) | DRG 872 ==
LOC: ED 01:03 → 3E 04:17 → SUATTDRO 04:17 → 3E 05:21
DX: A41.9 Sepsis, unspecified organism; T50.3X5A Adverse effect of electrolytic, caloric and water-balance agents, initial encounter; Z16.23 Resistance to quinolones and fluoroquinolones; N12 Tubulo-interstitial nephritis, not specified as acute or chronic; Z79.3 Long term (current) use of hormonal contraceptives; B96.20 Unspecified Escherichia coli [E. coli] as the cause of diseases classified elsewhere; Q62.5 Duplication of ureter; Z88.2 Allergy status to sulfonamides; D64.9 Anemia, unspecified

== ENCOUNTER 2024-07-10 14:44 | Inpatient (IN) ==
[2024-07-10] MEDS: SODIUM CHLORIDE 0.9% 1,000 ML IV ONE (15:26)
--- NOTE | 2024-07-10 15:26 | Emergency Department Note ---
Impression & Plan Pyelonephritis ED Provider Note CHIEF COMPLAINT: Recurring UTI, kidney infection HISTORY OF PRESENTING ILLNESS: This 23-year-old female patient presents emergency department for evaluation of UTI symptoms and flank pain for the past couple days. No fevers. Mild nausea, but no vomiting. Denies chest pain or SOB. Denies problems with her stools. The patient states that she has had a recurring UTI for the past couple weeks with recent admission for pyelonephritis. The patient states that she got better after discharge from the pyelonephritis. However, she is now having left flank pain, nausea, and increased urinary discomfort for the past 2 days. The patient went to [facility] 2 days ago and had a urinalysis performed that showed 1-5 white blood cells, but was otherwise negative. However, her urine culture came back today. Her urine culture grew 60,000 E. Coli that is sensitive to Cefazolin, Ceftriaxone, Cefuroxime, Macrobid, and Tetracycline, but resistant to Ampicillin, Ciprofloxacin, Levofloxacin, Bactrim. The patient is allergic to ceftriaxone. The patient called [facility] and she was advised to go to the ER due to her symptoms and multiple resistance on the culture. The patient was initially seen by [facility] on 04/13 and started on Cipro. She then came to the ER on 03/25/[address] scan that confirmed pyelonephritis as well as abnormal laboratory studies concerning for sepsis. The patient also has a duplicated left renal collecting system seen on imaging. The patient also has a 2 mm nonobstructing left renal stone on imaging. The patient was admitted to the hospital for IV antibiotics. Due to the patient's allergy to ceftriaxone she was treated with Zosyn and discharged home on Augmentin. She was also treated as an outpatient with Macrobid on 06/15/24 for return of UTI symptoms. The patient return to the ER on with vomiting and left flank pain in addition to her urinary symptoms. The patient again had confirmed pyelonephritis and sepsis and was admitted to the hospital. The patient was treated with IV Zosyn. The patient had an infectious disease consult who recommended discharging the patient home on Bactrim. The patient was discharged on 06/26/2024. The patient finished the Bactrim with resolution of her symptoms until 2 days ago. She denies any vaginal discharge. She is sexually active and does not always use protection. She has an appt with [facility] urology next week, but has not seen urology in the past. REVIEW OF SYSTEMS: See HPI for pertinent positives and pertinent negatives. ALLERGIES: Ceftriaxone MEDICATIONS: OCPs, Vit D, Probiotics PAST MEDICAL HISTORY: Duplicated left renal collecting system. Recurrent UTIs and pyelonephritis. PHYSICAL EXAM: VITALS: Vitals are noted on the nurse's note and reviewed by myself. GENERAL: Non toxic, in no acute distress, non-diaphoretic. SKIN: Capillary refill <2 sec. EYES: PERRLA. EOMI. Conjunctivae without injection, sclerae without icterus. NOSE: Patent without discharge. MOUTH: Mucous membranes moist. Uvula midline. Airway patent. NECK: Supple without nuchal rigidity. HEART: Regular rate and rhythm without murmurs gallops or rubs. LUNGS: Clear to auscultation bilaterally without wheezes, rales or rhonchi. No retractions or accessory muscle use. ABDOMEN: Positive bowel sounds x 4. Normal tympanic percussion. Soft, mild tenderness to palpation on the left side of the abdomen in the left flank. Mild left-sided CVA tenderness. No masses or hepatosplenomegaly. Solo sign negative. No guarding, rigidity, or rebound tenderness. No focal RLQ or LLQ tenderness. PELVIC EXAM: Permission to perform the exam. Risk Management Intern in the room for the exam. External genitalia normal. Vaginal canal with a small amount of yellowish-green discharge. Cervical os is closed. Cervix mildly erythematous without lesions and no cervical motion tenderness. Uterus is small and nontender. Adnexa nontender without obvious masses. MUSCULOSKELETAL: No gross musculoskeletal defects. NEURO: Patient was alert and oriented. No focal neurological deficits. DIFFERENTIAL DIAGNOSIS: Differential diagnosis includes hepatitis, pancreatitis, cholecystitis, cholelithiasis, appendicitis, kidney stone, pyelonephritis, UTI, gastritis, gastroenteritis, mesenteric adenitis, obstruction, constipation, hernia, abdominal abscess, perforation, diverticulitis, IBD, ischemic colitis, abdominal aortic aneurysm, , ectopic , ovarian cyst, ovarian torsion, acute salpingitis, or others. ED COURSE AND MEDICAL DECISION MAKING: MEDICATIONS GIVEN: 1 L normal saline solution bolus. Zofran 4 mg IV. Ertapenem 1 g IV. INTERPRETATION OF LABS: I interpreted the labs with full lab results as below in the lab section of this note. Laboratory results pertinent to the emergent complaint are discussed in the MDM section below. The patient was advised to follow up with their PCP and/or specialist(s) for further outpatient monitoring and management of any abnormal results. INTERPRETATION OF IMAGING: Imaging studies were interpreted by myself and read by radiology as per the imaging section of this note. The patient was advised to follow up with their PCP and/or specialist(s) for further outpatient management of any non-emergent abnormal findings. Renal ultrasound showed a normal-appearing right kidney and urinary bladder. Left renal cortical scarring. Duplication of the left renal collecting system. CT scan of the abdomen and pelvis with IV contrast shows interval development of multifocal left renal cortical atrophy with persistent low-attenuation areas that are likely due to evolving scarring. This could be due to prior pyelonephritis or prior renal infarcts. There is no clear evidence of acute pyelonephritis, though some residual pyelonephritis cannot be excluded. Small and nonobstructing left renal calculus. Unchanged dilation of the lower pole collecting system of the left kidney without visible obstructing calculus or mass. There is unchanged mild urothelial thickening that could be due to scarring, though persistent urinary tract infection is also possible. Apparent mild bladder wall thickening which may be due to infectious cystitis. EXTERNAL RECORDS REVIEWED: I reviewed the patient's most recent admissions as summarized above. I also reviewed the patient's outpatient urine culture results as above. CHRONIC MEDICAL/SOCIAL CONDITIONS AFFECTING CARE: Duplicated renal collecting system on the left CONSULTATIONS: Dr. Taylor of urology. ED pharmacist. On-call hospitalist. MDM SUMMARY: The patient was seen during a time of extreme volume and extreme acuity. Nursing triage protocols were initiated with IV lock, labs, and/or imaging studies conducted by protocol in the triage area. The patient was examined by myself once they were taken back to an exam room. The patient has had recurrent UTIs with 2 admissions for pyelonephritis recently with difficult to treat cultures due to her ceftriaxone allergy and sensitivity pattern of the urine cultures. The patient was last discharged on 06/26/2024 on a course of oral Bactrim after consult with infectious disease. The patient states that her symptoms resolved until 2 days ago. She developed return of urinary discomfort, left flank pain, and mild nausea. She went to [facility] and had a urinalysis and urine culture performed as reviewed above. Unfortunately, due to the patient's ceftriaxone allergy and multiple resistance, her UTI is somewhat difficult to treat. The patient was initially tachycardic in triage, but after IV fluids and IV Zofran, her tachycardia had resolved at the time of my examination. The patient declined any medication for pain while in the emergency department. White blood cell count elevated at 16.11. Hemoglobin normal at 12.9. Platelet count normal at 288. Lactate was not initially ordered in triage. There was then a delay by nursing staff in obtaining the patient's lactate level after I ordered it, but her lactate level was normal at 1.2. CMP was normal. Urine negative. Urinalysis with trace blood, 1+ leukocyte Estrace, and 11- 20 white blood cells concerning for infection. Urine culture is pending. Blood cultures were obtained and are pending. Vaginal cultures and STI testing are pending as well. Renal ultrasound showed a normal-appearing right kidney and urinary bladder. Left renal cortical scarring. Duplication of the left renal collecting system. CT scan of the abdomen and pelvis with IV contrast shows interval development of multifocal left renal cortical atrophy with persistent low-attenuation areas that are likely due to evolving scarring. This could be due to prior pyelonephritis or prior renal infarcts. There is no clear evidence of acute pyelonephritis, though some residual pyelonephritis cannot be excluded. Small and nonobstructing left renal calculus. Unchanged dilation of the lower pole collecting system of the left kidney without visible obstructing calculus or mass. There is unchanged mild urothelial thickening that could be due to scarring, though persistent urinary tract infection is also possible. Apparent mild bladder wall thickening which may be due to infectious cystitis. I reviewed the patient's outpatient urine culture results as above. Unfortunately, the E. coli is resistant to multiple antibiotics and the patient is allergic to ceftriaxone. However, a full sensitivity was also not performed. I spoke with the ED pharmacist who recommended either Zosyn or ertapenem. I had a meaningful discussion about this patient with Dr. Joseph who agrees with my assessment and the treatment plan. Dr. Joseph recommended we start the patient on ertapenem pending our urine culture. The patient was given ertapenem 1 g IV. I spoke with Dr. Taylor of urology. He recommended the patient be admitted for IV antibiotics. He did not feel the patient needs a stent at this time, but advised the patient be n.p.o. after midnight in case a stent is needed tomorrow. He recommended medicine for admission of the patient. I spoke with the on-call hospitalist who agreed to admit the patient for further evaluation and treatment. Please refer to their dictation for further details. The patient's care was transferred in stable condition. DIAGNOSIS: Pyelonephritis Past Med/Surg History Problem List (Updated 07/10/24 @ 23:[address] PA-C) Sepsis Low hemoglobin Pyelonephritis (Acute) Medical History TSERING (acute kidney injury) Leukocytosis Social History Smoking Status: Never smoker Second Hand Exposure: No; Do You Dip or Chew Tobacco: No; Hx Alcohol Use: Yes Alcohol type: beer, wine and hard liquor Hx Substance Use: No Preferred Language: [place] Citizen Communication Ability: Effective Barrel Endshaker Adjuster Required: No Beliefs That Will Affect Care: None Current Living Situation: Alone Current Living Situation Comment: On campus with roomates. Feels Safe at Home: Yes Safety Concerns: Feels Safe At This Time Assistive Devices: None Allergies Allergies Allergy/AdvReac Type Severity Reaction Status Date / Time ceftriaxone Allergy Swelling Verified 06/23/24 01:24 of Lip/Tongue/Throat Home Meds Home Medications Medication Instructions Recorded Confirmed norethindrone acetate 1 mg-ethinyl 1 tab PO DAILY 06/23/24 07/10/24 estradiol 20 mcg tablet (Junel) Results & Data (ED) Vital Signs Vital Signs - 24 hr 07/10/24 14:54 07/10/24 17:13 Temperature 36.4 C L Temperature Source Oral Pulse Rate 125 H Pulse Rate [Finger] 98 H Pulse Strength [Finger] Normal Respiratory Rate 18 16 Respiratory Effort / Characteristics Non-Labored Spontaneous Non-Labored Spontaneous Respiratory Depth Normal Normal Respiratory Pattern Regular Regular Blood Pressure 113/77 Blood Pressure [Right Arm] 123/81 Blood Pressure Mean 89 Blood Pressure Mean [Right Arm] 95 Blood Pressure Position [Right Arm] Sitting Pulse Oximetry 97 99 Oxygen Delivery Method Room Air Room Air Sepsis Recent Fever Within 48 Hours No Sepsis New/Unexplained Change in Mental Status No Sepsis Action Taken by Nursing No Action Required Laboratory Data 07/10/24 15:26 07/10/24 15:26 Lab Results 07/10/24 07/10/24 Range/Units 15:26 17:08 WBC 16.11 H (4.8-10.8) K/ul RBC 4.42 (4.20-5.40) M/uL Hgb 12.9 (12.0-16.0) g/dl Hct 38.4 (37.0-47.0) % MCV 86.9 (80.0-100.0) fL MCH 29.2 (25.0-34.0) pg MCHC 33.6 (32.0-36.0) g/dL RDW Std Deviation 39.5 (36.4-46.3) fL RDW Coeff of Lizzeth 12.4 (11.5-14.5) % Plt Count 288 (130-400) K/uL MPV 9.4 (9.4-12.4) fL Immature Gran % (Auto) 0.7 % Neut % (Auto) 72.8 % Lymph % (Auto) 20.6 % [place] % (Auto) 4.5 % Eos % (Auto) 0.9 % Baso % (Auto) 0.5 % Neut # (Auto) 11.73 H (1.40-6.50) K/uL Lymph # (Auto) 3.32 (1.20-3.40) K/uL [place] # (Auto) 0.72 H (0.11-0.59) K/uL Eos # (Auto) 0.15 (0.00-0.50) K/uL Baso # (Auto) 0.08 (0.00-0.20) K/uL Immature Gran # (Auto) 0.11 (0.01-0.20) K/uL Sodium 136 (136-145) mmol/L Potassium 3.9 (3.5-5.1) mmol/L Chloride 104 (98-107) mmol/L Carbon Dioxide 24 (21-32) mmol/L Anion Gap 8 (3-11) BUN 11 (6-23) mg/dl Creatinine 0.96 (0.6-1.2) mg/dl Est Cr Clr Drug Dosing 77.5 ml/min eGFR 84.73 BUN/Creatinine Ratio 11.5 (10-20) Glucose 87 (70-99(Fasting)) mg/dl Lactate 1.2 (0.4-2.0) mmol/L Calcium 9.4 (8.6-10.3) mg/dl Total Bilirubin 0.3 (0.2-1.0) mg/dl AST 14 (13-39) U/L ALT 9 (7-52) U/L Alkaline Phosphatase 46 (34-104) U/L Total Protein 7.0 (6.0-8.3) gm/dl Albumin 4.2 (3.4-5.0) gm/dl Globulin 2.8 (2.5-4.0) gm/dl Albumin/Globulin Ratio 1.5 (0.9-2) Urine Color Yellow Urine Appearance Clear (Clear) Urine pH 6.0 (4.5-7.5) Ur Specific [place] 1.005 (1.000-1.030) Urine Protein Negative (Negative) Urine Glucose (UA) Negative (Negative) Urine Ketones Negative (Negative) Urine Blood Trace H (Negative) Urine Nitrite Negative (Negative) Urine Bilirubin Negative (Negative) Urine Urobilinogen Negative (Negative) Ur Leukocyte Esterase 1+ H (Negative) Urine WBC (Auto) 11-20 H (0-5) /hpf Urine RBC (Auto) 0-2 (0-2) /hpf U Hyaline Cast (Auto) 0-2 (0-2) /lpf U Epithel Cells (Auto) 0-2 (0-2) /hpf Urine Bacteria (Auto) None Seen (None Seen) POC Ur Test NEG (NEG) Administered Medications Acetaminophen (Acetaminophen 325 Mg Tab) 650 mg PO Q4H PRN PRN Reason: Pain or Fever Stop: 08/09/24 18:14 Last Admin: 07/10/24 20:20 Dose: 650 mg Documented By: AES Discontinued Medications Sodium Chloride (Nss) 1,000 mls @ 999 mls/hr IV .Q1H1M ONE Stop: 07/10/24 16:03 Last Infusion: 07/10/24 16:28 Dose: Infused Documented By: Admin: 07/10/24 15:26 Dose: 999 mls/hr Documented By: CAMILLE Ertapenem (Invanz 1000mg) 1,000 mg in 10 mls @ 2 mls/min IV NOW STA Stop: 07/10/24 16:11 Last Admin: 07/10/24 17:18 Dose: 2 mls/min Documented By: TARUN Ioversol (Optiray 320 100ml) 93 ml IV ONCE ONE Stop: 07/10/24 16:26 Last Admin: 07/10/24 16:26 Dose: 93 ml Documented By: BERTIN Ondansetron HCl (Ondansetron Inj 2 Mg/Ml 2 Ml Vial) 4 mg IV NOW STA Stop: 07/10/24 15:26 Last Admin: 07/10/24 15:27 Dose: 4 mg Documented By: BS Imaging Data Radiologist's Impression: Renal Ultrasound 07/10/24 15:03 Clinical history: Possible kidney infection. Left sided pain Technique: Renal sonography was performed Comparison is made to the CT obtained today Findings: There is left renal cortical scarring. The right kidney measures 11.3 cm in length and the left kidney measures 10.4 cm in length. There is suspected duplication of the left renal collecting system. There is mild dilatation of the left renal collecting system. No definite renal calculus or mass is seen. The urinary bladder appears unremarkable. Bilateral ureteral jets were seen Impression: 1. Normal-appearing right kidney and urinary bladder 2. Left renal cortical scarring 3. Duplication of the left renal collecting system Electronically signed by Kiko Gustafson 07-10-2024 5:03 PM Abdomen/Pelvis CT 07/10/24 16:07 Clinical History: Left flank pain. Urinary tract infection Technique: Axial computed tomography images were obtained of the abdomen and pelvis after the administration of intravenous contrast. Comparison is made to the prior CT examinations dated 06/23/2024 and 03/25/2024. Findings: The liver is overall of normal size, attenuation, and contour with no sign of cirrhosis or significant fatty infiltration. No liver mass lesion is seen. The portal vein is patent. The gallbladder appears unremarkable. No bile duct dilatation is noted. The spleen is of normal size. No focal splenic lesion is evident. The pancreas appears normal with no sign of acute or chronic pancreatitis and no mass lesion noted. The pancreatic duct is of normal caliber. The adrenal glands appear unremarkable. The right kidney appears normal. There is an unchanged 2 mm left renal calculus. There is unchanged dilatation of the collecting system in the lower pole of the left kidney, with mild urothelial thickening. There is multifocal left renal cortical atrophy that appears worsened since March 2024. There has been interval decrease in attenuation of the previously noted multiple areas of diminished left renal cortical enhancement. The appearance is most suggestive of evolving renal scarring such as from prior renal infarcts or prior pyelonephritis. There is no perinephric stranding The abdominal aorta is of normal caliber. No abdominal adenopathy is seen. The stomach appears normal. There is no sign of small bowel obstruction. The colon appears unremarkable. The appendix appears normal also. No free intraperitoneal fluid or air is identified. No distal ureteral or bladder calculi are seen. There is apparent mild wall thickening of the urinary bladder. No definite bladder mass lesion is evident. The iliac arteries are of normal caliber. No pelvic adenopathy is noted. The lungs bases appear clear. No fracture is identified. No focal osseous lesion is seen Impression: 1. Interval development of multifocal left renal cortical atrophy, with persistent low-attenuation areas that are likely due to evolving scarring. This could be due to prior pyelonephritis or prior renal infarcts. There is no clear evidence of acute pyelonephritis, though some residual pyelonephritis cannot be excluded. Correlation with clinical symptoms and laboratory values would be useful 2. Small nonobstructing left renal calculus 3. Unchanged dilatation of the lower pole collecting system of the left kidney, without visible obstructing calculus or mass. There is unchanged mild urothelial thickening that could be due to scarring, though persistent urinary tract infection is also possible 4. Apparent mild bladder wall thickening, which may be due to infectious cystitis Electronically signed by Kiko Gustafson 07-10-2024 4:45 PM Discharge Plan Visit Data Chief Complaint: Flank Pain Stated Complaint: RECURRING UTI KIDNEY INFECTION, FLANK PN NAUSEA ED Provider: Nilo Joseph ED Midlevel Provider: Winsome Lane Discharge Problem: Pyelonephritis Patient Disposition: Admitted As Inpatient Condition: Good Discharge Instructions Interventions: ED Discharge Assessment Last Done: 07/10/24 17:51
[2024-07-10] MEDS: ONDANSETRON INJ 2 MG/ML 2 ML VIAL IV STA (15:27)
[2024-07-10 15:42] LABS: Basophils # (auto) 0.08 K/uL (0.00-0.20); Basophils % (auto) 0.5 %; Eosinophils # (auto) 0.15 K/uL (0.00-0.50); Eosinophils % (auto) 0.9 %; Hematocrit (blood only) 38.4 % (37.0-47.0); Hemoglobin 12.9 g/dl (12.0-16.0); Immature Granulocytes # (auto) 0.11 K/uL (0.01-0.20); Immature Granulocytes % (auto) 0.7 %; Lymphocytes # (auto) 3.32 K/uL (1.20-3.40); Lymphocytes % (auto) 20.6 %; Mean Corpuscular Hemoglobin 29.2 pg (25.0-34.0); Mean Corpuscular Hgb Conc 33.6 g/dL (32.0-36.0); Mean Corpuscular Volume 86.9 fL (80.0-100.0); Mean Platelet Volume 9.4 fL (9.4-12.4); Monocytes # (auto) 0.72 K/uL (0.11-0.59); Monocytes % (auto) 4.5 %; Neutrophils # (auto) 11.73 K/uL (1.40-6.50); Neutrophils % (auto) 72.8 %; Platelet Count 288 K/uL (130-400); RDW Coefficient of Variation 12.4 % (11.5-14.5); RDW Standard Deviation 39.5 fL (36.4-46.3); Red Blood Count 4.42 M/uL (4.20-5.40); White Blood Count 16.11 K/ul (4.8-10.8)
[2024-07-10 15:54] LABS: Appearance Urine Clear (Clear); Bacteria Urine Automated None Seen (None Seen); Bilirubin Urine Negative (Negative); Blood Urine Trace (Negative); Cast Urine Automated 0-2 /lpf (0-2); Color Urine Yellow; Epithelial Cell Urine Auto 0-2 /hpf (0-2); Glucose Urine UA Negative (Negative); Ketones Urine Negative (Negative); Leukocyte Esterase Urine 1+ (Negative); Nitrite Urine Negative (Negative); Protein Urine Negative (Negative); RBC Urine Automated 0-2 /hpf (0-2); Specific Gravity Urine 1.005 (1.000-1.030); Urobilinogen Urine Negative (Negative)
[2024-07-10 15:59] LABS: Albumin Globulin Ratio 1.5 (0.9-2); Albumin Level 4.2 gm/dl (3.4-5.0); BUN Creatinine Ratio 11.5 (10-20); Bilirubin,Total 0.3 mg/dl (0.2-1.0); Calcium 9.4 mg/dl (8.6-10.3); Creatinine Clr Calc Pharmacy 77.5 ml/min; Globulin 2.8 gm/dl (2.5-4.0); Potassium 3.9 mmol/L (3.5-5.1)
[2024-07-10] MEDS: OPTIRAY 320 100ml IV ONE (16:26)
--- NOTE | 2024-07-10 16:45 | CT Scan Report ---
Clinical History: Left flank pain. Urinary tract infection Technique: Axial computed tomography images were obtained of the abdomen and pelvis after the administration of intravenous contrast. Comparison is made to the prior CT examinations dated 06/23/2024 and 03/25/2024. Findings: The liver is overall of normal size, attenuation, and contour with no sign of cirrhosis or significant fatty infiltration. No liver mass lesion is seen. The portal vein is patent. The gallbladder appears unremarkable. No bile duct dilatation is noted. The spleen is of normal size. No focal splenic lesion is evident. The pancreas appears normal with no sign of acute or chronic pancreatitis and no mass lesion noted. The pancreatic duct is of normal caliber. The adrenal glands appear unremarkable. The right kidney appears normal. There is an unchanged 2 mm left renal calculus. There is unchanged dilatation of the collecting system in the lower pole of the left kidney, with mild urothelial thickening. There is multifocal left renal cortical atrophy that appears worsened since March 2024. There has been interval decrease in attenuation of the previously noted multiple areas of diminished left renal cortical enhancement. The appearance is most suggestive of evolving renal scarring such as from prior renal infarcts or prior pyelonephritis. There is no perinephric stranding The abdominal aorta is of normal caliber. No abdominal adenopathy is seen. The stomach appears normal. There is no sign of small bowel obstruction. The colon appears unremarkable. The appendix appears normal also. No free intraperitoneal fluid or air is identified. No distal ureteral or bladder calculi are seen. There is apparent mild wall thickening of the urinary bladder. No definite bladder mass lesion is evident. The iliac arteries are of normal caliber. No pelvic adenopathy is noted. The lungs bases appear clear. No fracture is identified. No focal osseous lesion is seen Impression: 1. Interval development of multifocal left renal cortical atrophy, with persistent low-attenuation areas that are likely due to evolving scarring. This could be due to prior pyelonephritis or prior renal infarcts. There is no clear evidence of acute pyelonephritis, though some residual pyelonephritis cannot be excluded. Correlation with clinical symptoms and laboratory values would be useful 2. Small nonobstructing left renal calculus 3. Unchanged dilatation of the lower pole collecting system of the left kidney, without visible obstructing calculus or mass. There is unchanged mild urothelial thickening that could be due to scarring, though persistent urinary tract infection is also possible 4. Apparent mild bladder wall thickening, which may be due to infectious cystitis Electronically signed by Kiko Gustafson 07-10-2024 4:45 PM
--- NOTE | 2024-07-10 17:08 | Ultrasound Report ---
Clinical history: Possible kidney infection. Left sided pain Technique: Renal sonography was performed Comparison is made to the CT obtained today Findings: There is left renal cortical scarring. The right kidney measures 11.3 cm in length and the left kidney measures 10.4 cm in length. There is suspected duplication of the left renal collecting system. There is mild dilatation of the left renal collecting system. No definite renal calculus or mass is seen. The urinary bladder appears unremarkable. Bilateral ureteral jets were seen Impression: 1. Normal-appearing right kidney and urinary bladder 2. Left renal cortical scarring 3. Duplication of the left renal collecting system Electronically signed by Kiko Gustafson 07-10-2024 5:03 PM
[2024-07-10] MEDS: ERTAPENEM 1000MG 1,000 MG/10 ML SYR IV STA (17:18)
--- NOTE | 2024-07-10 17:25 | History & Physical Report ---
Date of Service July 10, 2024 Assessment & Plan (1) Pyelonephritis: Plan: Suspected return of E. Coli with culture results in ER note from 2 days ago. However this was not tested against as many antibiotics as our inpatient testing and given allergy to ceftriaxone agree with treatment with ertapenem. Consult urology with dilatation of left sided collecting ducts (2) Sepsis: Plan: Lactate normal and MAP > 65 therefore does not meet criteria for full fluid bolus Empiric ertapenem Follow up urine and blood cultures Consider ID consulkt for prolonged course of antibiotics Plan VTE prophylaxis - low risk Diet - regular Disposition - admit to med/tele Admission and Anticipated Discharge Date Admission Date: July 10, 2024 History of Present Illness Chief Complaint: Left flank pain Primary Care Provider: [facility] Ankita Bullard is a 23 year old female who presents to the ER with left flank pain. She was recently admitted from June 23 - 2024 due to pyelonephritis with multi drug resistant E. coli treated with Zosyn followed by Bactrim. She was given a total of 7 days of antibiotics per ID recommendations. 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 Her symptoms initially res olved on the antibiotics but returned to a lesser extent 2 days ago having mild left "feeling of kidney and painful urination on and off". She went to [facility] 2 days ago and got a urine culture which subsequently resulted today showing E. coli now resistant to Bactrim, ampicillin, cefazolin, ciprofloxacin; intermediate resistance to levofloxacin; sensitive to nitrofurantoin, cefazolin, cefuroxime. Her left flank pain got much worse today with associated nausea therefore she decided to return tot he ER. No fever or chills. Allergies Allergy/AdvReac Type Severity Reaction Status Date / Time ceftriaxone Allergy Swelling Verified 06/23/24 01:24 of Lip/Tongue/Throat Home Medications Medication Instructions Recorded Confirmed Type norethindrone acetate 1 mg-ethinyl 1 tab PO DAILY 06/23/24 07/10/24 History estradiol 20 mcg tablet () Past Med/Surg History Problem List (Updated 07/10/24 @ 23:16 by Winsome Laen PA-C) Sepsis Low hemoglobin Pyelonephritis (Acute) Medical History TSERING (acute kidney injury) Leukocytosis Social History Smoking Status: Never smoker Second Hand Exposure: No; Do You Dip or Chew Tobacco: No; Hx Alcohol Use: Yes Alcohol type: beer, wine and hard liquor Hx Substance Use: No Preferred Language: Korean Communication Ability: Effective 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 Feels Safe at Home: Yes Safety Concerns: Feels Safe At This Time Assistive Devices: None Review of Systems Review of Systems: All systems reviewed & are unremarkable except as noted in HPI & below Physical Exam Constitutional: WD/WN, vitals as above Eyes: + anicteric sclerae; normal pupil size ENMT: external ear and nose normal, oropharynx normal Respiratory: normal respiratory effort, lungs clear to auscultation Cardiovascular: Rate/Rhythm: regular rhythm and + tachycardic Heart Sounds: no murmur Gastrointestinal (Abdomen): normal bowel sounds, soft, nontender, no hepatosplenomegaly Musculoskeletal: no cyanosis or clubbing, extremities motor strength 5/5 Skin: no rashes, warm and dry Neurologic: moves all extremities and awake; not confused Psychiatric: A+Ox3, euthymic affect Results & Data Results & Data Vital Signs (Past 12 Hours) Vital Signs Temp Pulse Pulse Resp BP BP Pulse Ox 07/10/24 17:13 98 H 16 123/81 99 07/10/24 14:54 36.4 C L 125 H 18 113/77 97 O2 Del Method 07/10/24 17:13 Room Air 07/10/24 14:54 Room Air Laboratory Results Abnormal lab results 07/10/24 Range/Units 15:26 WBC 16.11 H (4.8-10.8) K/ul Neut # (Auto) 11.73 H (1.40-6.50) K/uL Ector # (Auto) 0.72 H (0.11-0.59) K/uL Urine Blood Trace H (Negative) Ur Leukocyte Esterase 1+ H (Negative) Urine WBC (Auto) 11-20 H (0-5) /hpf Diagnostic Findings CT Abdomen/Pelvis Clinical History: Left flank pain. Urinary tract infection Technique: Axial computed tomography images were obtained of the abdomen and pelvis after the administration of intravenous contrast. Comparison is made to the prior CT examinations dated 06/23/2024 and 03/25/2024. Findings: The liver is overall of normal size, attenuation, and contour with no sign of cirrhosis or significant fatty infiltration. No liver mass lesion is seen. The portal vein is patent. The gallbladder appears unremarkable. No bile duct dilatation is noted. The spleen is of normal size. No focal splenic lesion is evident. The pancreas appears normal with no sign of acute or chronic pancreatitis and no mass lesion noted. The pancreatic duct is of normal caliber. The adrenal glands appear unremarkable. The right kidney appears normal. There is an unchanged 2 mm left renal calculus. There is unchanged dilatation of the collecting system in the lower pole of the left kidney, with mild urothelial thickening. There is multifocal left renal cortical atrophy that appears worsened since March 2024. There has been interval decrease in attenuation of the previously noted multiple areas of diminished left renal cortical enhancement. The appearance is most suggestive of evolving renal scarring such as from prior renal infarcts or prior pyelonephritis. There is no perinephric stranding The abdominal aorta is of normal caliber. No abdominal adenopathy is seen. The stomach appears normal. There is no sign of small bowel obstruction. The colon appears unremarkable. The appendix appears normal also. No free intraperitoneal fluid or air is identified. No distal ureteral or bladder calculi are seen. There is apparent mild wall thickening of the urinary bladder. No definite bladder mass lesion is evident. The iliac arteries are of normal caliber. No pelvic adenopathy is noted. The lungs bases appear clear. No fracture is identified. No focal osseous lesion is seen Impression: 1. Interval development of multifocal left renal cortical atrophy, with persistent low-attenuation areas that are likely due to evolving scarring. This could be due to prior pyelonephritis or prior renal infarcts. There is no clear evidence of acute pyelonephritis, though some residual pyelonephritis cannot be excluded. Correlation with clinical symptoms and laboratory values would be useful 2. Small nonobstructing left renal calculus 3. Unchanged dilatation of the lower pole collecting system of the left kidney, without visible obstructing calculus or mass. There is unchanged mild urothelial thickening that could be due to scarring, though persistent urinary tract infection is also possible 4. Apparent mild bladder wall thickening, which may be due to infectious cystitis Medications Administered ER Medications Given: Normal saline 1000ml bolus Ondansetron 4mg IV Ertapenem 1000mg IV Code Status & VTE Plan Code Status Full VTE Prophylaxis Plan VTE Prophylaxis will be ordered: No PG Care Time/CCT Total # of Minutes Spent Total Time Spent with Patient: Total time spent is greater than 50% in coordination of care (as documented) at patient's floor/unit and/or counseling patient: Coding Level of Care Code 59536 INT INP/OBS CARE 375MIN Diagnoses Pyelonephritis N12 Sepsis A41.9 Sepsis acute organ dysfunction status: unspecified Sepsis type: sepsis due to unspecified organism (2) Sepsis Sepsis acute organ dysfunction status: unspecified Sepsis type: sepsis due to unspecified organism Qualified Code(s): A41.9 - Sepsis, unspecified organism
--- NOTE | 2024-07-10 19:51 | Urology Consultation ---
Date of Consultation July 10, 2024 Assessment & Plan (1) Pyelonephritis: The patient has been admitted on the hospitalist service. From a urologic perspective we recommend the following: It appears that the patient may be suffering again from pyelonephritis and she has been placed on broad-spectrum antibiotics in the form of ertapenem. Appropriate blood cultures and urine culture have been sent and these can be tailored based on culture results Serial labs should be followed Will monitor the patient's clinical response to the above There is concern the patient has dilatation of her left renal collecting system. There is no definite obstructing kidney stone noted on CT scan. Because of this is not certain. It is potentially possible that maybe patient has some ureteral scarring causing stricture potentially leading to this finding. With this in mind, we will monitor the patient's clinical response will make her empirically n.p.o. after midnight tonight. She will be reevaluated by our dayshift team on 07/11/2024 and a determination will be made if patient requires cystoscopy for further evaluation Additional recommendations with forthcoming based on her clinical course as it unfolds History of Present Illness Reason for Consultation: Pyelonephritis with dilatation of the left ureter Attending Physician: Cory Lopes MD History of Present Illness This is a 23-year-old female who presented to the hospital secondary to left flank pain. She says that the left flank pain began today. She denies any nausea or vomiting and has not had any fevers, shakes, or chills. Approximate 2 days preceding her presentation today she did report some dysuria but denies any hematuria. She has not passed any kidney stones to the best of her knowledge. Patient notes that she has suffered from pyelonephritis multiple times recently and therefore wanted to come to the hospital early in this course for appropriate treatment. Patient does note that she was hospitalized for 1 night in March 2024 secondary to pyelonephritis. She says that she received intravenous antibiotics and also completed approximate 10 days of oral antibiotics. She was then admitted to the hospital in early June of this year for pyelonephritis with where she says she completed a 7-day course of antibiotics. Since arrival to the hospital this patient has had labs and imaging which I independent reviewed. Renal ultrasound showed a normal-appearing right kidney. There is left renal cortical scarring noted. 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 There is also noted to be mild dilatation of the left renal collecting system. No definite renal stones or masses were noted. A CT scan abdomen pelvis was performed. This showed the patient had left renal cortical atrophy which is felt to be secondary to scarring. Interpreting radiologist felt this could be sequelae of pyelonephritis. Residual pyelonephritis could not be excluded on this study. The patient was noted to have a small nonobstructing left renal calculus. There is dilatation noted of the lower pole of the collecting system of the left kidney. There were no noted obstructing stones or masses. There are some ureteral thickening noted felt to be potentially due to scarring from persistent urinary tract infections. There is bladder wall thickening concerning for infectious cystitis. Labs included CBC white blood cell count was elevated 16.1. Hemoglobin and hematocrit as well as a platelet count were normal. Chemistry profile showed sodium and potassium as well as the BUN and creatinine were normal. Lactic acid level was not elevated at 1.2. Urinalysis showed 11-20 white blood cells per high-power field and 1+ leukocyte Estrace. There were no other indications of urinary tract infection. Urinary test was negative. Past records were reviewed and in March 2024 the patient had blood cultures as well as a urine culture that were negative for growth. In June of this year she did have a urine culture that grew E. coli which was noted to be resistant to Cipro and Levaquin. Available imaging was also reviewed and in early June of this year she did have a renal ultrasound that showed a 2 mm nonobstructing mid left renal stone. She also had a CT scan abdomen pelvis at that time which showed the patient had dilatation of the left renal pelvis (similar to what was noted on her most recent scan from this admission). Patient also had a CT scan in March 2024 where patient had findings concerning for pyelonephritis of the left kidney. At the time of my interview the patient was resting comfortably in bed and she was no distress. Allergies Allergy/AdvReac Type Severity Reaction Status Date / Time ceftriaxone Allergy Swelling Verified 06/23/24 01:24 of Lip/Tongue/Throat Home Medications Medication Instructions Recorded Confirmed Type norethindrone acetate 1 mg-ethinyl 1 tab PO DAILY 06/23/24 07/10/24 History estradiol 20 mcg tablet (Junel) Patient History Medical History TSERING (acute kidney injury) Leukocytosis Social History Smoking Status: Never smoker Second Hand Exposure: No; Do You Dip or Chew Tobacco: No; Hx Alcohol Use: Yes Alcohol type: beer, wine and hard liquor Hx Substance Use: No Preferred Language: Pashto Communication Ability: Effective 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 Feels Safe at Home: Yes Safety Concerns: Feels Safe At This Time Assistive Devices: None Review of Systems Review of Systems: All systems reviewed & are unremarkable except as noted in HPI & below Physical Exam Constitutional: WD/WN, vitals as above Eyes: no conjunctival abnormality ENMT: Ears: no hearing impairment and no external ear abnormality Mouth: no oropharynx abnormality Neck: trachea midline Respiratory: normal respiratory effort; no respiratory distress and no labored breathing Cardiovascular: Rate/Rhythm: regular rate and regular rhythm Gastrointestinal (Abdomen): Soft and nontender to palpation Musculoskeletal: No gross orthopedic abnormalities Skin: no rashes Neurologic: moves all extremities Psychiatric: A+Ox3, euthymic affect Genitourinary: No CVA tenderness with percussion on the right. CVA tenderness with percussion is noted on the left. Results & Data Vital Signs (Past 12 Hours) Vital Signs Temp Pulse Pulse Resp BP BP Pulse Ox 07/10/24 18:23 07/10/24 18:16 36.5 C 92 H 20 121/82 98 07/10/24 17:51 102 H 16 123/81 99 07/10/24 17:13 98 H 16 123/81 99 07/10/24 14:54 36.4 C L 125 H 18 113/77 97 O2 Del Method 07/10/24 18:23 Room Air 07/10/24 18:16 Room Air 07/10/24 17:51 Room Air 07/10/24 17:13 Room Air 07/10/24 14:54 Room Air PG Care Time/CCT Total # of Minutes Spent Total Time Spent with Patient: Total time spent is greater than 50% in coordination of care (as documented) at patient's floor/unit and/or counseling patient: Coding Level of Care Code 12618 IN/OBS CONSULT LVL 5,80M Diagnoses Pyelonephritis N12
[2024-07-10] MEDS: ACETAMINOPHEN 325 MG TAB PO PRN (20:20)
[2024-07-11 06:27] LABS: Basophils # (auto) 0.06 K/uL (0.00-0.20); Basophils % (auto) 0.7 %; Eosinophils # (auto) 0.12 K/uL (0.00-0.50); Eosinophils % (auto) 1.4 %; Hematocrit (blood only) 33.9 % (37.0-47.0); Hemoglobin 11.1 g/dl (12.0-16.0); Immature Granulocytes # (auto) 0.04 K/uL (0.01-0.20); Immature Granulocytes % (auto) 0.5 %; Lymphocytes # (auto) 2.39 K/uL (1.20-3.40); Lymphocytes % (auto) 28.2 %; Mean Corpuscular Hemoglobin 29.4 pg (25.0-34.0); Mean Corpuscular Hgb Conc 32.7 g/dL (32.0-36.0); Mean Corpuscular Volume 89.9 fL (80.0-100.0); Monocytes # (auto) 0.48 K/uL (0.11-0.59); Monocytes % (auto) 5.7 %; Neutrophils # (auto) 5.38 K/uL (1.40-6.50); Neutrophils % (auto) 63.5 %; Platelet Count 232 K/uL (130-400); RDW Coefficient of Variation 12.4 % (11.5-14.5); RDW Standard Deviation 41.1 fL (36.4-46.3); Red Blood Count 3.77 M/uL (4.20-5.40); White Blood Count 8.47 K/ul (4.8-10.8)
[2024-07-11 06:52] LABS: BUN Creatinine Ratio 8.4 (10-20); Calcium 8.5 mg/dl (8.6-10.3); Creatinine Clr Calc Pharmacy 79.3 ml/min; Potassium 4.2 mmol/L (3.5-5.1)
--- NOTE | 2024-07-11 07:48 | Hospitalist Progress Note ---
Date of Service July 11, 2024 Assessment & Plan (1) Gram-positive bacteremia: (2) Sepsis: (3) Pyelonephritis: Plan Pyelonephritis -Suspected return of E. Coli with culture results in ER note from 2 days ago. However this was not tested against as many antibiotics as our inpatient testing and given allergy to ceftriaxone agree with treatment with ertapenem. -Urology consulted due to dilatation of left sided collecting ducts -No immediate plans for intervention while treating for pyelo Gram Positive Bacteremia -Lactate normal and MAP > 65 therefore does not meet criteria for full fluid bolus on admission -Empiric ertapenem started on admission -Urine culture growing e. coli, awaiting sensitivities -Blood cultures 2/2 growing gram positive cocci -ID consulted, unsure if gram + blood cultures is due to contaminant however both bottles growing same bacteria -ID ordered vancomycin which was started this afternoon -After 30 minutes of infusion, patient started to have facial flushing, itching at scalp -Infusion stopped, went to bedside. Patient states she is feeling a bit better, denies SOB, chest pain -Ordered dose of IV Benadryl, IV famotidine for symptoms VTE prophylaxis - low risk Diet - regular Code status: Full code Admission and Anticipated Discharge Date Admission Date: July 10, 2024 Supervising Physician Co-Signing Physician Notes ATTESTATION I also saw the patient and confirmed gale portions of the history and exam. I agree with the impression and plan in the resident documentation, and as summarized below. I am familiar with the patient from a prior admission - I believe this would be her third episode in the past two months or so, after no previous history. EXAM 104/68, 81, 16, 36.3, 97 room air Alert and oriented. NAD. CV regular Lungs CTA DATA Labs HgB 11.1 Sodium 139, Potassium 4.2, BUN 8, Cr 0.95 Micro PCR pending as of 0912 hours Blood cultures collected 07/10/24 show gram positive cocci 2/2 Urine culture collected 07/10/24 shows e. coli Urine culture 03/25/24 had no growth, but outpatient urine culture prior to that visit grew e. coli IMPRESSION & PLAN Pyelonephritis, recurrent Abnormality of urinary anatomy Gram (+) bacteremia Gram (+) blood cultures a surprise, no obvious source upon clinical history/social habits/exam Add vancomycin pending speciation Continue ertapenem pending sensitivities Appreciate urology and ID consultation Additional per resident documentation Subjective Patient seen and examined at bedside. States she is feeling better this morning, flank pain is improved and currently does not have nausea. Denies chest pain or shortness of breath. Review of Systems Review of Systems: As per above Physical Exam Constitutional: WD/WN, vitals as above Eyes: + anicteric sclerae; no conjunctival abn ormality ENMT: Ears: no external ear abnormality Nose: no external nose abnormality moist mucous membranes Respiratory: normal respiratory effort, lungs clear to auscultation Cardiovascular: Rate/Rhythm: regular rate and regular rhythm Heart Sounds: no murmur Gastrointestinal (Abdomen): Inspection/Auscultation: abdomen normal to inspection; abdomen not distended Percussion/Palpation: abdomen soft; abdomen nontender Skin: no rashes, warm and dry Psychiatric: A+Ox3, euthymic affect Results & Data Results & Data Vital Signs (Past 12 Hours) Vital Signs Temp Pulse Resp BP BP Pulse Ox O2 Del Method 07/11/24 02:28 36.8 C 98 H 16 93/58 L 97 Room Air 07/10/24 22:54 36.9 C 88 14 97/58 L 99 Room Air 07/10/24 20:07 36.7 C 115 H 16 111/72 98 Room Air Resident Activity Tracking Resident Involvement: Resident Care Provided Care Provided: Adult Hospital Medicine (2) Sepsis Sepsis acute organ dysfunction status: unspecified Sepsis type: sepsis due to unspecified organism Qualified Code(s): A41.9 - Sepsis, unspecified organism
[2024-07-11 09:20] LABS: A calco-baum cmplx NotReported Not Detected (NotDetected); Bact fragilis Not Reported Not Detected (NotDetected); Blood Culture Id Panel See PCR Comment (NotDetected); C auris Not Reported Not Detected (NotDetected); Calbicans Not Reported Not Detected (NotDetected); Candida glabrata Not Reported Not Detected (NotDetected); Candida krusei Not Reported Not Detected (NotDetected); Cneoformans/gatti Not Reported Not Detected (NotDetected); Cparapsilosis Not Reported Not Detected (NotDetected); E cloacae compx Not Reported Not Detected (NotDetected); Efaecalis Not Reported Not Detected (NotDetected); Efaecium Not Reported Not Detected (NotDetected); Enterobacterales Not Reported Not Detected (NotDetected); Escherichia coli Not Reported Not Detected (NotDetected); H influenzae Not Reported Not Detected (NotDetected); K aerogenes Not Reported Not Detected (NotDetected); Koxytoca Not Reported Not Detected (NotDetected); Kpneumoniae grp Not Reported Not Detected (NotDetected); Lmonocyt Not Reported Not Detected (NotDetected); N meningitidis Not Reported Not Detected (NotDetected); P aeruginosa Not Reported Not Detected (NotDetected); Proteus spp Not Reported Not Detected (NotDetected); Salmonella spp Not Reported Not Detected (NotDetected); Staph lugdunensis Not Reported Not Detected (NotDetected); Staph spp. Not Reported DETECTED (NotDetected); Staphaureus Not Reported Not Detected (NotDetected); Staphepi Not Reported DETECTED (NotDetected); Staphylococcus spp. DETECTED (NotDetected); Stenmaltophilia Not Reported Not Detected (NotDetected); Strep agal(GrpB) Not Reported Not Detected (NotDetected); Strep pneum Not Reported Not Detected (NotDetected); Strep pyog (GrpA) Not Reported Not Detected (NotDetected); Strep spp Not Reported DETECTED (NotDetected)
[2024-07-11 09:39] LABS: Staphylococcus epidermidis DETECTED (NotDetected); mecAC Resistant Gene DETECTED (NotDetected)
[2024-07-11 09:40] LABS: Streptococcus spp DETECTED (NotDetected)
--- NOTE | 2024-07-11 09:45 | Urology Progress Note ---
Date of Service July 11, 2024 Assessment & Plan (1) Pyelonephritis: Plan: Follow-up of left pyelonephritis Remains afebrile, hemodynamically stable Subjectively feeling better today Labs reviewedcreatinine 0.95, no leukocytosis Urine culture prelim with E. coli Blood cultures are pending, 1 of 4 prelim with gram positive cocci, probable contaminant Continue with broad spectrum antibiotics and narrow per sensitivity data when available, follow cultures Dilatation of the left lower pole collecting system is likely secondary to infection, no obstruction noted No acute intervention at this time, patient can eat today Continue with supportive care and antibiotics Suspect that prior pyelonephritis was not completely resolved Recommend extended course of appropriate antibiotics (14-21 days) will follow along Admission and Anticipated Discharge Date Admission Date: July 10, 2024 Subjective Patient seen and examined at bedside. She is feeling better since arrival. Reports flank pain has improved. No nausea, vomiting, fever or chills. No dysuria. She reports that she was generally feeling better on antibiotics, but symptoms came back after discontinuation. Review of Systems Constitutional: as per Subjective / HPI Genitourinary: as per Subjective / HPI Physical Exam Constitutional: well developed and well nourished; no acute distress Respiratory: normal respiratory effort; no respiratory distress and no labored breathing Gastrointestinal (Abdomen): Inspection/Auscultation: abdomen normal to inspection Musculoskeletal: Head/Neck/Chest: normocephalic Neurologic: moves all extremities and awake Psychiatric: Orientation: alert and oriented x 3 Genitourinary: + CVA tenderness (left, mild) Results & Data Vital Signs (Past 12 Hours) Vital Signs Temp Pulse Resp BP Pulse Ox O2 Del Method 07/11/24 09:21 Room Air 07/11/24 08:11 36.3 C L 81 16 104/68 97 Room Air 07/11/24 02:28 36.8 C 98 H 16 93/58 L 97 Room Air 07/10/24 22:54 36.9 C 88 14 97/58 L 99 Room Air PG Care Time/CCT Total # of Minutes Spent Total Time Spent with Patient: Total time spent is greater than 50% in coordination of care (as documented) at patient's floor/unit and/or counseling patient: Coding Level of Care Code 75373 SUB INP/OBS CARE 06/14MIN Diagnoses Pyelonephritis N12
[2024-07-11 13:07] LABS: Bacterial Vaginosis RNA Negative (Negative)
[2024-07-11 13:22] LABS: Candida glabrata RNA Negative (Negative); Candida species group RNA Negative (Negative); Trichomonas vaginalis RNA Negative (Negative)
[2024-07-11 13:39] LABS: Chlam trach RNA(Genit,Ureth,Ur Not Detected (NotDetected); GC(Neis gon)RNA(Genit,Ureth,Ur Not Detected (NotDetected)
--- NOTE | 2024-07-11 15:12 | Infectious Disease Consult ---
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 She went to [facility] where UA had 1-5 WBC and 60k E coli (R-amp, cipro, Bactrim). No fevers. She had reported being sexually active and not using protection every time. On admission, she was afebrile, vss. Initial labs with WBC 16.11, Cr 0.96, LFT wnl, lactate 1.2. UA with 11-20 WBC. UCx with E coli. Vaginal GC/chlamydia, BV, trich vaginalis, timothy all negative. Mycoplasma genitalium also sent and is pending. Renal ultrasound with left renal cortical scarring. CTAP w IV con showed interval development of multifocal left renal cortical atrophy, with persistent low-attenuation areas that are likely due to evolving scarring, could be due to prior pyelonephritis or prior renal infarct, there is no clear evidence of acute pyelonephritis, though some residual pyelonephritis cannot be excluded; small nonobstructing left renal calculus, unchanged dilatation of the lower pole collecting system of the left kidney, without visible obstructing calculus or mass, unchanged mild urothelial thickening that could be due to scarring, though persistent UTI is also possible; apparent mild bladder wall thickening, which may be due to infectious cystitis. She was seen by urology, no intervention. She has been getting ertapenem. Urine cx resulted with E coli and blood cx with GPC. ID consulted 07/11. No telepresenter available at this time. Regarding UTI/pyelo, the sensitivities for E coli are in process and she is cur rently on ertapenem. She has previously tolerated zosyn so I suspect that she may be able to use this. The last UCx from [facility] (image in ER note) is sensitive to CTX, though extensive sensi were not performed. Can keep on ertapenem for now and de-escalate once sensitivities become available. Regarding bacteremia, BCX note GPC in 2 sets, one that notes clusters. The BCID has both Strep and Staph epi +mecA. Possible the Staph epi is contaminant though Id like to wait for culture speciation to determine the presence of these organisms in 1 vs both bottles. Will add on vancomycin for now. Source of Strep is unclear based on history. No documentation of respiratory issues, she has been on room air. Would obtain a thorough history/exam regarding possible source of the gram positive bacteremia and obtain further testing as needed. # Bacteremia 2/2 GPC (BCID +Strep, S epidermidis, +mecA) # Pyelonephritis 2/2 E coli (sensi pending) # Recurrent pyelonephritis # Duplication of left renal collecting system # CTX allergy - please examine for sources of gram positive bacteremia (ie skin/soft tissue infection, hardware, IV lines, joint swelling/pain, spinal tenderness, oral lesions/poor dentition) if present, pursue further evaluation/imaging - favor repeating BCX in 48-72hrs - Adriana started vancomycin pharmacy dosed protocol while waiting to determine GPC in blood - continue ertapenem 1g IV daily pending UCx sensi - f/u urine and blood cx - de-escalate pending above ID will continue to follow. Please note that there will be no ID notes over the weekend. If questions or concerns arise, please contact the Infectious Disease Call Center and ask to speak with the covering ID physician. Dr. Huff will take over on Sunday. Jeannine Frausto MD [facility], Division of Infectious Diseases Consultation Information This patient recommendation is based on a telemedicine consult request which was completed asynchronously through chart review and information provided by the primary physician. The patient was not seen or examined today. The evaluation is consultative in nature and all patient care and treatment decisions can either be accepted or rejected by the patient's primary hospital-based treating physician using their own independent medical judgment for their patient. [employer] contact information: Please call [facility] . 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 Her symptoms had resolved after her most recent abx but returned 2 days prior to presentation with left flank pain and painful urination on/off. She went to [facility] where, per chart, UA had 1-5 WBC and 60k E coli. Her left flank pain got significantly worse along with nausea so she came to the ED. No fevers. She had reported being sexually active and not using protection every time. On admission, she was afebrile, vss. Initial labs with WBC 16.11, Cr 0.96, LFT wnl, lactate 1.2. UA with 11-20 WBC. UCx with E coli. Vaginal GC/chlamydia, BV, trich vaginalis, timothy all negative. Mycoplasma genitalium also sent and is pending. Renal ultrasound with left renal cortical scarring. CTAP with interval development of multifocal left renal cortical atrophy, with persistent low-attenuation areas that are likely due to evolving scarring, could be due to prior pyelonephritis or prior renal infarct, there is no clear evidence of acute pyelonephritis, though some residual pyelonephritis cannot be excluded; small nonobstructing left renal calculus, unchanged dilatation of the lower pole collecting system of the left kidney, without visible obstructing calculus or mass, unchanged mild urothelial thickening that could be due to scarring, though persistent UTI is also possible; apparent mild bladder wall thickening, which may be due to infectious cystitis. She was seen by urology, no intervention. She has been getting ertapenem. Urine cx resulted with E coli and blood cx with GPC. ID consulted 07/11. No telepresenter available at this time. Allergies Allergy/AdvReac Type Severity Reaction Status Date / Time ceftriaxone Allergy Swelling Verified 06/23/24 01:24 of Lip/Tongue/Throat Home Medications Medication Instructions Recorded Confirmed Type norethindrone acetate 1 mg-ethinyl 1 tab PO DAILY 06/23/24 07/10/24 History estradiol 20 mcg tablet (Junel) Patient History Medical History TSERING (acute kidney injury) Leukocytosis Social History Smoking Status: Never smoker Second Hand Exposure: No; Do You Dip or Chew Tobacco: No; Hx Alcohol Use: Yes Alcohol type: beer, wine and hard liquor Hx Substance Use: No Preferred Language: Turkmen Communication Ability: Effective Or Assistant Required: No Beliefs That Will Affect Care: None Current Living Situation: Alone Current Living Situation Comment: On campus with roomates. Feels Safe at Home: Yes Safety Concerns: Feels Safe At This Time Assistive Devices: None Results & Data Vital Signs (Past 12 Hours) Vital Signs Temp Pulse Pulse Resp BP Pulse Ox O2 Del Method 07/11/24 13:04 110 H 07/11/24 10:55 36.6 C 85 16 118/81 98 Room Air 07/11/24 09:21 Room Air 07/11/24 08:11 36.3 C L 81 16 104/68 97 Room Air 07/11/24 05:43 86 Laboratory Results Labs reviewed. Diagnostic Findings Imaging reviewed. (3) Sepsis Sepsis acute organ dysfunction status: unspecified Sepsis type: sepsis due to unspecified organism Qualified Code(s): A41.9 - Sepsis, unspecified organism
[2024-07-11] MEDS ORDERED: VANCOMYCIN CONSULT ACTIVE PRN (15:24)
[2024-07-11] MEDS: ERTAPENEM 1000MG 1,000 MG/10 ML SYR IV SCH (16:23)
[2024-07-11 16:44] LABS: Mycoplasma Genitalium RNA Negative (Negative)
[2024-07-11] MEDS: VANCOMYCIN HCL 1,250 MG in SODIUM CHLORIDE 0.9% 250 ML IV ONE (17:05)
[2024-07-11] MEDS: diphenhydrAMINE 50 MG/ML VIAL IV STA (18:09)
[2024-07-11] MEDS: FAMOTIDINE 20MG IV PUSH 20 MG/5 ML SYR IV STA (18:34)
[2024-07-12] MEDS ORDERED: VANCOMYCIN HCL 1,000 MG/270 ML BAG IV SCH (02:00)
[2024-07-12 06:15] LABS: Basophils # (auto) 0.07 K/uL (0.00-0.20); Basophils % (auto) 1.2 %; Eosinophils # (auto) 0.21 K/uL (0.00-0.50); Eosinophils % (auto) 3.6 %; Hematocrit (blood only) 34.8 % (37.0-47.0); Hemoglobin 11.5 g/dl (12.0-16.0); Immature Granulocytes # (auto) 0.05 K/uL (0.01-0.20); Immature Granulocytes % (auto) 0.9 %; Lymphocytes # (auto) 2.72 K/uL (1.20-3.40); Lymphocytes % (auto) 47.1 %; Mean Corpuscular Hemoglobin 29.5 pg (25.0-34.0); Mean Corpuscular Volume 89.2 fL (80.0-100.0); Mean Platelet Volume 9.8 fL (9.4-12.4); Monocytes # (auto) 0.45 K/uL (0.11-0.59); Monocytes % (auto) 7.8 %; Neutrophils # (auto) 2.27 K/uL (1.40-6.50); Neutrophils % (auto) 39.4 %; Platelet Count 239 K/uL (130-400); RDW Coefficient of Variation 12.5 % (11.5-14.5); RDW Standard Deviation 40.7 fL (36.4-46.3); White Blood Count 5.77 K/ul (4.8-10.8)
[2024-07-12 06:27] LABS: Albumin Globulin Ratio 1.3 (0.9-2); Albumin Level 3.5 gm/dl (3.4-5.0); BUN Creatinine Ratio 9.5 (10-20); Bilirubin,Total 0.3 mg/dl (0.2-1.0); Calcium 8.8 mg/dl (8.6-10.3); Creatinine Clr Calc Pharmacy 79.3 ml/min; Globulin 2.6 gm/dl (2.5-4.0); Potassium 4.2 mmol/L (3.5-5.1); Total Protein 6.1 gm/dl (6.0-8.3)
--- NOTE | 2024-07-12 07:34 | Hospitalist Progress Note ---
Date of Service July 12, 2024 Assessment & Plan (1) Gram-positive bacteremia: (2) Sepsis: (3) Pyelonephritis: Plan Pyelonephritis -Suspected return of E. Coli with culture results in ER note from 2 days ago. However this was not tested against as many antibiotics as our inpatient testing and given allergy to ceftriaxone agree with treatment with ertapenem. -Urology consulted due to dilatation of left sided collecting ducts -No immediate plans for intervention while treating for pyelo Gram Positive Bacteremia -Lactate normal and MAP > 65 therefore does not meet criteria for full fluid bolus on admission -Empiric ertapenem started on admission -Urine culture grew e. coli, multi-drug resistant -Blood cultures 2/2 growing gram positive cocci: now speciated to Streptococcus mitis/oralis grp, Rothia mucilaginosa, Staphylococcus epidermidis -ID suspecting this is a contaminant so will continue with continue with ertapenem until ID re-evaluates on sunday -Repeat blood cultures obtained this afternoon -ID ordered vancomycin however after 30 minutes of infusion, patient started to have facial flushing, itching at scalp. Stopped vanco VTE prophylaxis - low risk Diet - regular Code status: Full code Admission and Anticipated Discharge Date Admission Date: July 10, 2024 Supervising Physician Co-Signing Physician Notes ATTESTATION I also saw the patient and confirmed gale portions of the history and exam. I agree with the impression and plan in the resident documentation, and as summarized below. I am familiar with the patient from a prior admission - I believe this would be her third episode in the past four months or so, after no previous history. While her urine culture shows growth of E. coli, interestingly her blood cultures came back positive (2/2) with gram-positive. ID was consulted yesterday, vancomycin was added, but unfortunately she had a vancomycin administration reaction with itching and flushing. The infusion was stopped and she was medicated with antihistamines. EXAM 106/68, 72, 16, 36.7, 99% room air Alert and oriented. NAD. CV regular Lungs CTA DATA Labs HgB 11.5 Sodium 138, Potassium 4.2, BUN 9, Cr 0.95 LFTs unremarkable Micro PCR pending as of 0912 hours Blood cultures collected 07/10/24 show gram positive cocci 2/2; speciation pending. Urine culture collected 07/10/24 shows e. coli, resistant to ampicillin and ciprofloxacin, intermediate susceptibility to ampicillin/sulbactam, cefazolin, and levofloxacin. This is similar to the sensitivities obtained from her 06/23/2024 urine culture. IMPRESSION & PLAN Pyelonephritis, recurrent Abnormality of urinary anatomy Gram (+) bacteremia Gram (+) blood cultures a surprise, no obvious source upon clinical history/social habits/exam; cannot exclude contamination given they were drawn from same location Continue ertapenem pending sensitivities Appreciate urology and ID consultation Additional per resident documentation Subjective Patient seen and examined at bedside. Denies any nausea or flank pain today. Inquires about updates on blood/urine cultures. Eating and drinking without difficulty Review of Systems Review of Systems: As per above Physical Exam Constitutional: WD/WN, vitals as above Eyes: + anicteric sclerae; no conjunctival abn ormality ENMT: Ears: no external ear abnormality Nose: no external nose abnormality Respiratory: normal respiratory effort, lungs clear to auscultation Cardiovascular: Rate/Rhythm: regular rate and regular rhythm Heart Sounds: no murmur Gastrointestinal (Abdomen): Inspection/Auscultation: abdomen normal to inspection; abdomen not distended Percussion/Palpation: abdomen soft; abdomen nontender Skin: no rashes, warm and dry Psychiatric: A+Ox3, euthymic affect Results & Data Results & Data Vital Signs (Past 12 Hours) Vital Signs Temp Pulse Pulse Resp BP Pulse Ox O2 Del Method 07/12/24 05:45 72 07/12/24 03:21 36.6 C 78 16 89/56 L 98 Room Air 07/11/24 23:05 36.6 C 89 16 99/62 L 99 Room Air 07/11/24 21:44 80 07/11/24 21:00 Room Air Resident Activity Tracking Resident Involvement: Resident Care Provided Care Provided: Adult Hospital Medicine (2) Sepsis Sepsis acute organ dysfunction status: unspecified Sepsis type: sepsis due to unspecified organism Qualified Code(s): A41.9 - Sepsis, unspecified organism
--- NOTE | 2024-07-12 11:07 | Urology Progress Note ---
Date of Service July 12, 2024 Assessment & Plan (1) Pyelonephritis: (2) Sepsis: (3) Gram-positive bacteremia: (4) TSERING (acute kidney injury): (5) Duplicated ureter, left: (6) Reflux, vesicoureteral: Plan Extensive conversation and evaluation of patient today. Long conversation about findings on imaging concerns and issues. Discussed extensively duplicated systems. Discussed partial versus complete duplications. Discussed possible issues with reflux and obstruction with duplicated systems. Extensively reviewed findings on imaging. Does have atrophy of the left kidney with majority of issues appearing on the lower pole. May be secondary to reflux coming from the lower pole segment likely having a more superior and lateral positioning in the bladder. Also may be secondary to obstruction. Difficult to determine on current imaging. Did discuss this extensively with patient. Discussed further options for imaging including renal Lasix scan to see and assess for split function and overall assessment and any signs of obstruction as well as other options such as further imaging. Discussed cystoscopy extensively. Discussed different options including ureteroscopy and evaluation. Discussed options moving forward. Reviewed extensively patient's previous infection issues. Prior to this patient has had episodes of pyelo but only over the last few years. Patient's imaging was extensively reviewed and assessed by myself. On imaging patient has atrophy of the left kidney has likely scarring of the lower pole segment. Appears to have a duplicated ureter going down into the pelvis. Cannot confirm true complete duplication versus partial duplication but does appear to at least have a duplication going down into the deeper pelvis to the bladder. Does appear to have possible reflux and scarring of the lower pole segment. No major other abnormalities or irregularities. 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 Did extensively reviewed options moving forward. Did discuss different options for UTI prevention to prevent development of pyelonephrosis if reflux is a major concern. Patient is currently also being treated for gram-positive bacteremia. Possible contamination versus true infection. At this point patient is continuing on broad-spectrum IV antibiotics. Will likely be able to de-escalate with discharge likely to oral agent. Patient already has follow-up set in the office. Extensive conversation with patient and support today. Multiple questions answered. Extensive review of anomaly and possible causes of issues and as well as further workup and assessment. Approximately 55 minutes in evaluation assessment examination and discussion with patient. Will plan to continue with supportive care continue with plans for IV hydration and close monitoring. Patient's labs and vitals were all extensively reviewed. Currently remains afebrile vitals have been stable with mild hypotension likely physiologic. Patient's white count is now down to 5.77. Creatinine 0.95. Other labs and vitals are stable please see HPI or plan section for pertinent values and full report from the medical records. Will plan to continue to follow. Infectious disease has been consulted. Will plan to have patient follow-up as outpatient in order to undergo further assessment and workup. Will likely need cystoscopy at some point and will consider repeat assessment with possible renal Lasix scan at some point in the future after patient's resolved infection issues. Will work extensively with patient as outpatient for UTI prevention control in the future as well as options for management to try to avoid severe major infections. Could consider self start antibiotics as a potential option. Plan to follow-up in office and plan to monitor for resolution of issues. Admission and Anticipated Discharge Date Admission Date: July 10, 2024 Subjective Patient admitted with And ill feelings UTI possible Jose Martin and significant flank discomfort. Patient is currently afebrile. Has been supportive care and IV antibiotic therapy with oral medications, IV medications, IV fluids, and oral intake. Is doing better without considerable increase in pain or major issues. Patient found to have a normally kidney was first discovered approximately 2019. Possible duplicated system on the left with atrophy of left kidney. Has not developed severe vomiting or other issues. Has not experienced fever or chills. Has been awaiting culture results has been maintained on IV antibiotics. Has been tolerating oral medications. Is tolerating fluids. Has noticed some frequency and urgency. Has not had severe pain in the back and flank. Does have occasional burning and irritation. No severe episodes or major changes. Has not passed a large amount of blood or debris that may be the stone. Review of Systems Review of Systems: All systems reviewed & are unremarkable except as noted in HPI & below Physical Exam Physical Exam: General: Alert in no acute distress. HEENT: Normocephalic Atraumatic. Inspection normal. Cranial Nerves 2-12 Grossly intact. Normal inspection of face. Normal inspection of neck. Psychologic: Normal affect. Respiratory: Nonlabored. No use of accessory muscles. No tachypnea or dyspnea. Cardiovascular: No tachycardia Skin: [place] and Dry. No rashes or visible lesions. Extremities/Lymphatics: No edema Abdomen: Soft Non-distended. No rebound or guarding. Results & Data Vital Signs (Past 12 Hours) Vital Signs Temp Pulse Pulse Resp BP BP Pulse Ox 07/12/24 08:42 36.7 C 72 16 106/68 99 07/12/24 08:11 07/12/24 05:45 72 07/12/24 03:21 36.6 C 78 16 89/56 L 98 07/11/24 23:05 36.6 C 89 16 99/62 L 99 O2 Del Method 07/12/24 08:42 Room Air 07/12/24 08:11 Room Air 07/12/24 05:45 07/12/24 03:21 Room Air 07/11/24 23:05 Room Air PG Care Time/CCT Total # of Minutes Spent Total Time Spent with Patient: Total time spent is greater than 50% in coordination of care (as documented) at patient's floor/unit and/or counseling patient: Coding Level of Care Code 96220 SUB INP/OBS CARE 3/50MIN Diagnoses Pyelonephritis N12 Sepsis A41.9 Sepsis acute organ dysfunction status: unspecified Sepsis type: sepsis due to unspecified organism Gram-positive bacteremia R78.81 TSERING (acute kidney injury) N17.9 Duplicated ureter, left Q62.5 Reflux, vesicoureteral N13.70 (2) Sepsis Sepsis acute organ dysfunction status: unspecified Sepsis type: sepsis due to unspecified organism Qualified Code(s): A41.9 - Sepsis, unspecified organism
[2024-07-12] MEDS: LORazepam 0.5 MG TAB PO STA (17:57)
--- NOTE | 2024-07-13 07:34 | Hospitalist Progress Note ---
Date of Service July 13, 2024 Assessment & Plan (1) Gram-positive bacteremia: (2) Sepsis: (3) Pyelonephritis: Plan Pyelonephritis -Suspected return of E. Coli with culture results in ER note. However this was not tested against as many antibiotics as our inpatient testing and given allergy to ceftriaxone agree with treatment with ertapenem. -Vaginal swab obtained in ED, results negative -Urology consulted due to dilatation of left sided collecting ducts -No immediate plans for intervention while treating for current pyelonephritis -Will require outpatient follow up Gram Positive Bacteremia- Likely Due to contaminant -Lactate normal and MAP > 65 therefore did not meet criteria for full fluid bolus on admission -Empiric ertapenem started on admission -Urine culture grew e. coli, multi-drug resistant -Blood cultures 06/22 growing gram positive cocci: now speciated to Streptococcus mitis/oralis grp, Rothia mucilaginosa, Staphylococcus epidermidis -Discussed blood culture results with on-call ID provider at [facility] on 07/12 -ID suspecting this is a contaminant (as both bottles were collected from the same site), so will continue with continue with ertapenem until ID re-evaluates on Sunday -Repeat blood cultures obtained on 07/13, pending results -Note: ID ordered vancomycin on 07/11 however after 30 minutes of infusion, patient started to have facial flushing, itching at scalp. Stopped vanco. With negative MRSA nares and blood cultures now speciated as above, ID comfortable with continuing only Ertapenem over the weekend -Continue daily CBC, metabolic panel VTE prophylaxis - low risk Diet - regular Code status: Full code Admission and Anticipated Discharge Date Admission Date: July 10, 2024 Supervising Physician Co-Signing Physician Notes ATTESTATION I also saw the patient and confirmed gale portions of the history and exam. I agree with the impression and plan in the resident documentation, and as summarized below. EXAM 100/62, 75, 16, 36.4, 99% Alert and oriented. NAD. CV regular Lungs CTA DATA Labs HgB 11.7 Sodium 138, Potassium 4.2, BUN 10, Cr 0.84 LFTs unremarkable Micro Blood cultures collected 07/12/24 are pending. Blood cultures collected from right arm 07/10/24 show strep mitis, rothia mucilaginosa, and staph epidermidis in bottle #1; rothia mucilaginosa in bottle #2 Urine culture collected 07/10/24 shows e. coli, resistant to ampicillin and ciprofloxacin, intermediate susceptibility to ampicillin/sulbactam, cefazolin, and levofloxacin. This is similar - but not exact - to the sensitivities obt ained from her 06/23/2024 urine culture. IMPRESSION & PLAN Pyelonephritis, recurrent Abnormality of urinary anatomy Gram (+) bacteremia, question contamination but similar pathogens 06/22 (but noted same site, right arm) Gram (+) blood cultures a surprise, no obvious source upon clinical history/social habits/exam; cannot exclude contamination given they were drawn from same location Continue ertapenem pending sensitivities Appreciate urology and ID consultation Repeat cultures drawn 07/12 If we can resolve blood cultures (preferably with negative repeat and ID follow up on Sunday), potential discharge with outpatient urology follow up Antimicrobial selection maybe difficult given sensitivities and her allergies, also noting Augmentin resistance of 06/23/24 e. coli Would need either prophylactic antibiotics or self-start antibiotics to prevent escalation of infection; will discuss best options/recommendations with urology and ID Additional per resident documentation Subjective No overnight events reported. Had some difficulty with her IV yesterday evening- had to have IV team place new IV site and there was difficulty obtaining blood cultures (however both blood culture samples were collected successfully). Notes that this has been some mild discomfort at her left flank with certain movements/positions this rhodes. Review of Systems Review of Systems: As per above Physical Exam Constitutional: WD/WN, vitals as above Eyes: + anicteric sclerae; no conjunctival abn ormality ENMT: Ears: no external ear abnormality Nose: no external nose abnormality Normal dentition, moist mucous membranes Respiratory: normal respiratory effort, lungs clear to auscultation Cardiovascular: Rate/Rhythm: regular rate and regular rhythm Heart Sounds: no murmur Musculoskeletal: No CVA tenderness Skin: no rashes, warm and dry Psychiatric: A+Ox3, euthymic affect Results & Data Results & Data Vital Signs (Past 12 Hours) Vital Signs Temp Pulse Pulse Resp BP Pulse Ox O2 Del Method 07/13/24 03:43 36.4 C L 68 16 101/67 99 Room Air 07/12/24 22:53 36.7 C 83 16 97/62 L 98 Room Air 07/12/24 21:43 79 Resident Activity Tracking Resident Involvement: Resident Care Provided Care Provided: Adult Hospital Medicine (2) Sepsis Sepsis acute organ dysfunction status: unspecified Sepsis type: sepsis due to unspecified organism Qualified Code(s): A41.9 - Sepsis, unspecified organism
[2024-07-13 07:45] LABS: Basophils # (auto) 0.06 K/uL (0.00-0.20); Basophils % (auto) 1.1 %; Eosinophils # (auto) 0.17 K/uL (0.00-0.50); Hematocrit (blood only) 34.8 % (37.0-47.0); Hemoglobin 11.7 g/dl (12.0-16.0); Immature Granulocytes # (auto) 0.04 K/uL (0.01-0.20); Immature Granulocytes % (auto) 0.7 %; Lymphocytes # (auto) 2.44 K/uL (1.20-3.40); Lymphocytes % (auto) 43.2 %; Mean Corpuscular Hemoglobin 29.6 pg (25.0-34.0); Mean Corpuscular Hgb Conc 33.6 g/dL (32.0-36.0); Mean Corpuscular Volume 88.1 fL (80.0-100.0); Monocytes # (auto) 0.38 K/uL (0.11-0.59); Monocytes % (auto) 6.7 %; Neutrophils # (auto) 2.56 K/uL (1.40-6.50); Neutrophils % (auto) 45.3 %; Platelet Count 233 K/uL (130-400); RDW Coefficient of Variation 12.2 % (11.5-14.5); RDW Standard Deviation 39.2 fL (36.4-46.3); Red Blood Count 3.95 M/uL (4.20-5.40); White Blood Count 5.65 K/ul (4.8-10.8)
[2024-07-13 08:03] LABS: Albumin Globulin Ratio 1.3 (0.9-2); Albumin Level 3.5 gm/dl (3.4-5.0); BUN Creatinine Ratio 11.9 (10-20); Bilirubin,Total 0.2 mg/dl (0.2-1.0); Calcium 8.9 mg/dl (8.6-10.3); Creatinine Clr Calc Pharmacy 89.7 ml/min; Globulin 2.7 gm/dl (2.5-4.0); Potassium 4.2 mmol/L (3.5-5.1); Total Protein 6.2 gm/dl (6.0-8.3)
[2024-07-13] MEDS: JUNEL FE CONTRACEPTIVE PO SCH (08:36)
[2024-07-14 06:14] LABS: Hematocrit (blood only) 34.4 % (37.0-47.0); Hemoglobin 11.5 g/dl (12.0-16.0); Mean Corpuscular Hemoglobin 29.5 pg (25.0-34.0); Mean Corpuscular Hgb Conc 33.4 g/dL (32.0-36.0); Mean Corpuscular Volume 88.2 fL (80.0-100.0); Mean Platelet Volume 9.9 fL (9.4-12.4); Platelet Count 250 K/uL (130-400); RDW Coefficient of Variation 12.1 % (11.5-14.5); RDW Standard Deviation 38.8 fL (36.4-46.3); White Blood Count 5.95 K/ul (4.8-10.8)
[2024-07-14 06:38] LABS: Albumin Globulin Ratio 1.3 (0.9-2); Albumin Level 3.5 gm/dl (3.4-5.0); BUN Creatinine Ratio 10.5 (10-20); Bilirubin,Total 0.3 mg/dl (0.2-1.0); Calcium 8.8 mg/dl (8.6-10.3); Creatinine Clr Calc Pharmacy 79.3 ml/min; Globulin 2.6 gm/dl (2.5-4.0); Potassium 4.1 mmol/L (3.5-5.1); Total Protein 6.1 gm/dl (6.0-8.3)
[2024-07-14 06:44] LABS: Basophils # (auto) 0.07 K/uL (0.00-0.20); Basophils % (auto) 1.2 %; Eosinophils # (auto) 0.19 K/uL (0.00-0.50); Eosinophils % (auto) 3.2 %; Immature Granulocytes # (auto) 0.04 K/uL (0.01-0.20); Immature Granulocytes % (auto) 0.7 %; Lymphocytes % (auto) 50.4 %; Monocytes # (auto) 0.35 K/uL (0.11-0.59); Monocytes % (auto) 5.9 %; Neutrophils % (auto) 38.6 %
--- NOTE | 2024-07-14 06:51 | Hospitalist Progress Note ---
Date of Service July 14, 2024 Assessment & Plan (1) Gram-positive bacteremia: (2) Sepsis: (3) Pyelonephritis: Plan Pt is a 23 yo female who presents to the hospital for 07/10 for pyonephritis with continued hospitalization for ESBL pyelonephritis and gram positive bacteremia (suspected contamination). Pyelonephritis - urine cx; ecoli, multidrug resistant -Vaginal swab obtained in ED, results negative -Urology consulted due to dilatation of left sided collecting ducts -No immediate plans for intervention while treating for current pyelonephritis -Will require outpatient follow up - continue ertapenem started on admission - ID to evaluate pt today Gram Positive Bacteremia- Likely Due to contaminant -Lactate normal and MAP > 65 therefore did not meet criteria for full fluid bolus on admission -Blood cultures 2/ growing gram positive cocci: now speciated to Streptococcus mitis/oralis grp, Rothia mucilaginosa, Staphylococcus epidermidis -Discussed blood culture results with on-call ID provider at [facility] on 07/12 -ID suspecting this is a contaminant (as both bottles were collected from the same site), so will continue with continue with ertapenem until ID re-evaluates on Sunday -Note: ID ordered vancomycin on 07/11 however after 30 minutes of infusion, patient started to have facial flushing, itching at scalp. Stopped vanco. With negative MRSA nares and blood cultures now speciated as above, ID comfortable with continuing only Ertapenem over the weekend -repeat blood cx; negative at 24 hours suggesting previous was likely skin contaminant - TTE ordered per ID Recommend allergy f/u on discharge for CTX allergy/allergy testing. VTE prophylaxis - low risk (Meredith score 1 given OCP use) Admission and Anticipated Discharge Date Admission Date: July 10, 2024 Supervising Physician Co-Signing Physician Notes I personally examined the patient and verified all gale points of history and exam, discussed case, and agree with decision making with Dr Russell feeling good overall. wonders about going home. ID input appreciated vitals noted nad heent nc at mmm breathing unlabored no accessory muscles good effort skin no rashes no pallor or icterus IMPRESSION & PLAN Pyelonephritis, recurrent Abnormality of urinary anatomy Gram (+) bacteremia, question contamination but similar pathogens 2/2 (but noted same site, right arm) Gram (+) blood cultures a surprise, no obvious source upon clinical history/social habits/exam; cannot exclude contamination given they were drawn from same location Appreciate urology and ID consultation Repeat cultures drawn 07/12 are NGTD, TTE no vegetation anticipate 14 total days of ertapenem Would need either prophylactic antibiotics or self-start antibiotics to prevent escalation of infection - outpt f/u after dc Additional per resident documentation Subjective Today, pt seen at bedside. She states she is feeling okay today. She notes overnight she had some L sided flank pain in the middle of the night that resolved and states that she seems to get the pain any time she does not drink for a few hours at a time. She feels better overall. No chest pain or SOB. No nausea/vomiting, or abdominal pain right now. No concerns at the moment. Review of Systems Review of Systems: Per HPI. Physical Exam Physical Exam: General:Alert and oriented, no acute distress, HEENT: Normocephalic, moist oral mucosa, Cardio: Regular rate and rhythm, no murmur, Resp:Lungs clear to auscultation b/l, no wheezes or rhonchi, GI: Soft and nontender, nondistended, bowel sounds active Skin: Warm, pink, dry, Results & Data Results & Data Vital Signs (Past 12 Hours) Vital Signs Temp Pulse Pulse Resp BP Pulse Ox O2 Del Method 07/14/24 03:27 36.7 C 69 100/60 99 Room Air 07/13/24 23:23 36.6 C 92 H 16 98/60 L 98 Room Air 07/13/24 22:41 82 07/13/24 20:47 36.5 C 85 12 113/76 99 Room Air Resident Activity Tracking Resident Involvement: Resident Care Provided Care Provided: Adult Hospital Medicine (2) Sepsis Sepsis acute organ dysfunction status: unspecified Sepsis type: sepsis due to unspecified organism Qualified Code(s): A41.9 - Sepsis, unspecified organism
--- NOTE | 2024-07-14 12:21 | Infectious Disease Progress Nt ---
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 She went to [facility] where UA had 1-5 WBC and 60k E coli (R-amp, cipro, Bactrim). No fevers. She had reported being sexually active and not using protection every time. On admission, she was afebrile, vss. Initial labs with WBC 16.11, Cr 0.96, LFT wnl, lactate 1.2. UA with 11-20 WBC. UCx with E coli. Vaginal GC/chlamydia, BV, trich vaginalis, timothy all negative. Mycoplasma genitalium also sent and is pending. Renal ultrasound with left renal cortical scarring. CTAP w IV con showed interval development of multifocal left renal cortical atrophy, with persistent low-attenuation areas that are likely due to evolving scarring, could be due to prior pyelonephritis or prior renal infarct, there is no clear evidence of acute pyelonephritis, though some residual pyelonephritis cannot be excluded; small nonobstructing left renal calculus, unchanged dilatation of the lower pole collecting system of the left kidney, without visible obstructing calculus or mass, unchanged mild urothelial thickening that could be due to scarring, though persistent UTI is also possible; apparent mild bladder wall thickening, which may be due to infectious cystitis. She was seen by urology, no intervention. She has been getting ertapenem. Urine cx resulted with E coli and blood cx with [facility]. ID consulted 07/11. Microbiology Urine culture 07/10: E. coli (sensitive to Rheumox/[place], intermediate cefazolin, resistant to Cipro, resistant to Bactrim) Blood culture 07/10: Rothia mucilaginosa in 2/2 bottles, 1/2 staph epi ( RSE) , 1/2 strep mitis/oralis Blood culture 07/12 NGTD Antibiotics Ertapenem 07/10ongoing Vancomycin 07/11 # Bacteremia 06/22 [facility]: MRSE, Rothia and strep mitis # Pyelonephritis 2/ E coli # Recurrent pyelonephritis # Duplication of left renal collecting system # CTX allergy Discussion: She no longer has flank pain or dysuria. E. coli is relatively sensitive. No documented ESBL. Will continue to treat with ertapenem given her cephalosporin allergy. She has previously tolerated zosyn so I suspect that she may be able to use this, but would wait on further sensi on strep mitis and need to treat. Regarding bacteremia: Staph epi in 1 out of 4 bottles is likely a contaminant. Rothia and strep mitis are both part of oral pharynx/dental neo and may not be contaminants. Strep mitis can be associated with endocarditis. She denies any dental pain but endorses 1 week history of tooth sensitivity around her lower right filling. No hardware or prosthetics. Vanco added but developed infusion related reaction over the weekend. So held as staph epi may be a contaminant. Recommendations - follow up repeat BC 07/12 - continue ertapenem 1g IV daily for coverage of Ecoli. Should cover strep mitis and rothia. - Check TTE in setting of strep mitis bacteremia and tooth sensitivity/pain at filling site Discussed with team ID will continue to follow. Endy Huff MD, MPH Infectious Disease [facility], [facility] Call [phone] with questions Admission and Anticipated Discharge Date Admission Date: July 10, 2024 Subjective Subsequent visit was provided via telemedicine using two-way real-time interactive telecommunication between the patient and the telemedicine provider. For the duration of the visit, the provider was performing the assessment from a different facility than the patient. This includesuse of bluetooth stethoscope forauscultationperformed by the telepresenter that the telemedicine provider can hear if described in the physical exam. Hotbed Transfer Operator contact information: Please call [facility] . (Phone Number For Physician Use Only) After establishing a telemedicine visit, patient was: Patient was verified with two unique identifiers Time Spent with Patient: Subsequent => 35 min Denies fever, skin rash Denies tooth pain but has tooth sensitivity around bottom tooth filling. Mother at bedside Review of System mild tooth sensitivity , flank pain improved Physical Exam Physical Exam: Gen- NAD Heent- ATNC, anicteric sclera, R lower tooth filing. Fair dentition Neck- supple Lung- Non labored breating, On RA Abd- soft, not tender, not distended - no suprapubic tenderness, no flank pain. Ext- No edema Skin- no rash Neuro- AAO times 3 Psych- cooperative, normal mood. Results & Data Vital Signs (Past 12 Hours) Vital Signs Temp Pulse Pulse Resp BP BP Pulse Ox 07/14/24 10:56 36.3 C L 100 H 14 127/84 99 07/14/24 09:32 72 07/14/24 07:25 36.5 C 81 14 107/69 99 07/14/24 03:27 36.7 C 69 100/60 99 O2 Del Method 07/14/24 10:56 Room Air 07/14/24 09:32 07/14/24 07:25 Room Air 07/14/24 03:27 Room Air Laboratory Results Short CBC 07/14/24 Range/Units 05:33 WBC 5.95 (4.8-10.8) K/ul Hgb 11.5 L (12.0-16.0) g/dl Hct 34.4 L (37.0-47.0) % Plt Count 250 (130-400) K/uL BMP 07/14/24 05:33 Sodium 139 Potassium 4.1 Chloride 106 Carbon Dioxide 27 BUN 10 Creatinine 0.95 Glucose 80 Calcium 8.8 Liver Function 07/14/24 Range/Units 05:33 Total Bilirubin 0.3 (0.2-1.0) mg/dl AST 11 L (13-39) U/L ALT 6 L (7-52) U/L Alkaline Phosphatase 34 (34-104) U/L Albumin 3.5 (3.4-5.0) gm/dl Diagnostic Findings Microbiology 07/12/24 18:06 Blood Aerobic Blood Culture - Preliminary No growth in Aerobic bottle after 24 hours. 07/12/24 18:06 Blood Anaerobic Blood Culture - Final 07/12/24 17:03 Blood Aerobic Blood Culture - Preliminary No growth in Aerobic bottle after 24 hours. 07/12/24 17:03 Blood Anaerobic Blood Culture - Preliminary No growth in Anaerobic bottle after 24 hours. 07/10/24 17:08 Blood Aerobic Blood Culture - Preliminary Streptococcus mitis/oralis grp Rothia mucilaginosa Staphylococcus epidermidis 07/10/24 17:08 Blood Anaerobic Blood Culture - Preliminary No growth in Anaerobic bottle after 48 hours. 07/10/24 17:08 Blood Aerobic Blood Culture - Preliminary Gram positive cocci clusters 07/10/24 17:08 Blood Anaerobic Blood Culture - Final 07/10/24 15:26 Urine,Clean Catch Urine Culture - Final Escherichia coli Medications Administered Home Medications Medication Instructions Recorded Confirmed Last Taken norethindrone acetate 1 mg-ethinyl 1 tab PO DAILY 06/23/24 07/10/24 06/23/24 estradiol 20 mcg tablet () 1 Active Medications Generic Name Dose Route Start Last Admin Trade Name Freq PRN Reason Stop Dose Admin Acetaminophen 650 mg 07/10/24 18:15 07/10/24 20:20 Acetaminophen 325 Mg Tab PO 08/09/24 18:14 650 mg Q4H PRN Administration Pain or Fever Ertapenem 1,000 mg in 10 mls @ 2 mls/min 07/11/24 17:00 07/13/24 17:22 Invanz 1000mg IV 07/18/24 16:59 2 mls/min Q24H MARISOL Administration Miscellaneous 1 each 07/13/24 09:00 07/14/24 08:29 Fe--Patient's Own Oral Contraceptive PO 08/12/24 08:59 1 each DAILY MARISOL Administration (3) Sepsis Sepsis acute organ dysfunction status: unspecified Sepsis type: sepsis due to unspecified organism Qualified Code(s): A41.9 - Sepsis, unspecified organism
--- NOTE | 2024-07-14 14:40 | XCELERA ---
[id number]
--- NOTE | 2024-07-14 17:59 | Billing Data ---
Date of Service July 14, 2024 Coding Level of Care Code 15156 SUB INP/OBS CARE MIN
[2024-07-15 03:37] VITALS: O2SAT 98
--- NOTE | 2024-07-15 06:59 | Discharge Summary ---
Date of Service July 15, 2024 Admission HPI Per Admitting Provider Ankita Bullard is a 23 year old female who presents to the ER with left flank pain. She was recently admitted from June 23 - 2024 due to pyelonephritis with multi drug resistant E. coli treated with Zosyn followed by Bactrim. She was given a total of 7 days of antibiotics per ID recommendations. 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 Her symptoms initially resolved on the antibiotics but returned to a lesser extent 2 days ago having mild left "feeling of kidney and painful urination on and off". She went to [facility] 2 days ago and got a urine culture which subsequently resulted today showing E. coli now resistant to Bactrim, ampicillin, cefazolin, ciprofloxacin; intermediate resistance to levofloxacin; sensitive to nitrofurantoin, cefazolin, cefuroxime. Her left flank pain got much worse today with associated nausea therefore she decided to return tot he ER. No fever or chills. Admission Exam Per Admitting Provider Constitutional: WD/WN, vitals as above Eyes: + anicteric sclerae; normal pupil size ENMT: external ear and nose normal, oropharynx normal Respiratory: normal respiratory effort, lungs clear to auscultation Cardiovascular: Rate/Rhythm: regular rhythm and + tachycardic Heart Sounds: no murmur Gastrointestinal (Abdomen): normal bowel sounds, soft, nontender, no hepatosplenomegaly Musculoskeletal: no cyanosis or clubbing, extremities motor strength 5/5 Skin: no rashes, warm and dry Neurologic: moves all extremities and awake; not confused Psychiatric: A+Ox3, euthymic affect Principal Diagnosis Pyelonephritis Discharge Exam General:Alert and oriented, no acute distress, HEENT: Normocephalic, moist oral mucosa, Cardio: Regular rate and rhythm, no murmur, Resp:Lungs clear to auscultation b/l, no wheezes or rhonchi, GI: Soft and nontender, nondistended, bowel sounds active Skin: Warm, pink, dry, Discharge Data Allergies Allergy/AdvReac Type Severity Reaction Status Date / Time ceftriaxone Allergy Swelling Verified 06/23/24 01:24 of Lip/Tongue/Throat Consultations 07/10/24 17:22 Consult Urology Routine 07/10/24 17:25 ED Decision to Admit Stat 07/11/24 14:35 Consult Infectious Diseases Routine Ordered Studies 07/10/24 15:03 US Renal Bladder [US renal/blad retro comp] Stat 07/10/24 16:07 CT abd pelvis IV con only Stat Hospital Course (1) Gram-positive bacteremia: (2) Sepsis: (3) Pyelonephritis: Plan Pt is a 23 yo female who presents to the hospital for 07/10 for pyonephritis with continued hospitalization for ESBL pyelonephritis and gram positive bacteremia (suspected contamination). Pyelonephritis - urine cx; ecoli, multidrug resistant - Vaginal swab obtained in ED, results negative - Urology consulted due to dilatation of left sided collecting ducts -No immediate plans for intervention while treating for current pyelonephritis, but will require outpatient follow up - continue ertapenem through [facility] for 9 more days (14 days total) Gram Positive Bacteremia- Likely due to contaminant -Lactate normal and MAP > 65 therefore did not meet criteria for full fluid bolus on admission -Blood cultures 06/22 growing gram positive cocci: now speciated to Streptococcus mitis/oralis grp, Rothia mucilaginosa, Staphylococcus epidermidis -Discussed blood culture results with on-call [facility] provider [facility] on 07/[facility] -ID suspecting this is a contaminant (as both bottles were collected from the same site), so will continue with continue with ertapenem until ID re-evaluates on Sunday -Note: ID ordered vancomycin on 07/11 however after 30 minutes of infusion, patient started to have facial flushing, itching at scalp. Stopped vanco. With negative MRSA nares and blood cultures now speciated as above, ID comfortable with continuing only Ertapenem over the weekend - repeat blood cx; negative at 48 hours suggesting previous was likely skin contaminant - TTE ordered per ID; no vegetations, cardiac function normal Recommend allergy f/u on discharge for CTX allergy/allergy testing. Total Time Total Time Spent Total Time Spent (In Minutes): <30 Discharge Plan Discharge Items Patient Disposition: Home - Self-Care Reason For Visit: PYELONEPHRITIS Discharge Diagnosis: Pyelonephritis (kidney infection) Condition on Discharge: Good Activity: Resume your previous activity Non-emergency contact: Primary Care Provider Call non-emergency contact if: you have any medication questions, your symptoms worsen, your pain is worsening and your temperature is above 101 Follow-up/Referrals: [facility] [Primary Care Provider] - Diet: Regular Addtl Attending Provider Instructions: You were admitted to the hospital for an infection of your kidneys (also called pyelonephritis). We have given you IV antibiotics here in the hospital, which you improved on and as you are now feeling much better, we believe it is safe for you to continue treatment outside of the hospital. You will be set up with the [facility] (medical treatment [facility]) for you to come in once daily to get your dose of IV antibiotics. This will be for the next approximately 9 days. After that, there will be no need for follow-up blood or urine cultures as long as you feel well. As we discussed, while you were here your blood culture showed some bacteria on it. We highly suspect that the bacteria are from the skin and just contamination, but we did an ultrasound of your heart (transthoracic echocardiogram) to ensure this injection is not coming from a heart valve (certain bacteria are relatively "sticky" and tend to persist in the blood because they stick to our heart valves or implants particularly well.) Your ultrasound was normal. We will, however, treat you with a long enough course of antibiotic (ertapenem) regardless to cover if this blood culture were "real" (not just contaminant) anyway. Your repeat blood cultures have been negative for any growth which is reassuring as well. If, once you leave the hospital, you start to feel worse with fevers or increasing back/flank pain, please return to the hospital. You should plan to follow-up with your family doctor within 1 week of discharge from the hospital. You should also plan to follow-up with urology on discharge for the hospital. Pending Studies at Discharge: No Stand-Alone Forms: [facility] Medications and DC Order Prescriptions: Continued norethindrone ac-eth estradiol [06/09 (21)] 1-20 mg-mcg Tablet 1 tab PO DAILY Discharge Orders: Discharge Order (Routine); Ordered 07/15/24 Ordered By: María Cuevas/Other Patient Handouts: When to Use Antibiotics, ED Bacteremia, Suspected (Adult), ED Pyelonephritis Ch Admission Data Admit Date/Time: 07/10/24 17:20 Attending Provider: Douglas Jose Admit Provider: Cory Lopes Primary Care Provider: [facility] Other Providers: Ashwin Taylor; Cory Lopes; Radha Frank; Prema Baxter; Jeannine Frausto; Endy Huff; Lesli Magaña; Lisa Rodriguez Other Interventions: Discharge Summary Assessment (RN) Last Done: 07/15/24 10:29 Supervising Physician Co-Signing Physician Notes I personally examined the patient and verified all gale points of history and exam, discussed case, and agree with decision making with Dr Russell feels good feels up for discharge discussed plan vitals noted nad heent nc at mmm breathing unlabored no accessory muscles good effort skin no rashes no pallor or icterus IMPRESSION & PLAN Pyelonephritis, recurrent Abnormality of urinary anatomy Gram (+) bacteremia, question contamination but similar pathogens 06/22 (but noted same site, right arm) Gram (+) blood cultures a surprise, no obvious source upon clinical history/social habits/exam; cannot exclude contamination given they were drawn from same location Appreciate urology and ID consultation Repeat cultures drawn 07/12 are NGTD, TTE no vegetation treat with 14 total days of ertapenem safe for home, outpt f/u Additional per resident documentation Resident Activity Tracking Resident Involvement: Resident Care Provided Care Provided: Adult Hospital Medicine
[2024-07-15 07:51] VITALS: RESP 14
--- NOTE | 2024-07-15 10:37 | Infectious Disease Progress Nt ---
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 She went to [facility] where UA had 1-5 WBC and 60k E coli (R-amp, cipro, Bactrim). No fevers. She had reported being sexually active and not using protection every time. On admission, she was afebrile, vss. Initial labs with WBC 16.11, Cr 0.96, LFT wnl, lactate 1.2. UA with 11-20 WBC. UCx with E coli. Vaginal GC/chlamydia, BV, trich vaginalis, timothy all negative. Mycoplasma genitalium also sent and is pending. Renal ultrasound with left renal cortical scarring. CTAP w IV con showed interval development of multifocal left renal cortical atrophy, with persistent low-attenuation areas that are likely due to evolving scarring, could be due to prior pyelonephritis or prior renal infarct, there is no clear evidence of acute pyelonephritis, though some residual pyelonephritis cannot be excluded; small nonobstructing left renal calculus, unchanged dilatation of the lower pole collecting system of the left kidney, without visible obstructing calculus or mass, unchanged mild urothelial thickening that could be due to scarring, though persistent UTI is also possible; apparent mild bladder wall thickening, which may be due to infectious cystitis. She was seen by urology, no intervention. She has been getting ertapenem. Urine cx resulted with E coli and blood cx with GPC. ID consulted 07/11. Microbiology Urine culture 07/10: E. coli (sensitive to amox/Clav, intermediate cefazolin, resistant to Cipro, resistant to Bactrim) Blood culture 07/10: Rothia mucilaginosa in 2/2 bottles, 1/2 staph epi ( MRSE) , 1/2 strep mitis/oralis Blood culture 07/12 NGTD Antibiotics Ertapenem 07/10ongoing Vancomycin 07/11 # Bacteremia 06/22 GPC: MRSE, Rothia and strep mitis # Pyelonephritis 2/ E coli # Recurrent pyelonephritis # Duplication of left renal collecting system # CTX allergy Discussion: She no longer has flank pain or dysuria. E. coli is relatively sensitive. No documented ESBL. Will continue to treat with ertapenem given her cephalosporin allergy.t. Regarding bacteremia: Staph epi in 1 out of 4 bottles is likely a contaminant. Rothia and strep mitis are both part of oral pharynx/dental neo and may not be contaminants. Strep mitis can be associated with endocarditis. She denies any dental pain but endorses 1 week history of tooth sensitivity around her lower right filling. No hardware or prosthetics. Vanco added but developed infusion related reaction over the weekend. Vancomycin held as staph epi may be a contaminant. Ertapenem should cover Step mitis and Rothia TTE on 07/14 w/o vegatations or valve abnormalities. Repeat BCx 07/12 NGTD 7 days of ertapenem should cover for GNR pyelo . Given GPC ( rothia, and Strep mitis) bacteremia of unk etiology , complete 14d (07/12-07/25). Recommendations - follow up repeat BC 07/12 - continue ertapenem 1g IV daily for coverage of Ecoli. Should cover strep mitis and rothia. Plan for 14 from 07/12 for reasons above. Will complete at infusion center. - Follow up with dentist as outpatient. Monitor CBc with diff, bmp, lft on abx Discussed with team Id will sign off. Please call with questions. Endy Huff MD, MPH Infectious Disease [facility], [facility] Call [phone] with questions Admission and Anticipated Discharge Date Admission Date: July 10, 2024 Subjective Subsequent visit was provided via telemedicine using two-way real-time interactive telecommunication between the patient and the telemedicine provider. For the duration of the visit, the provider was performing the assessment from a different facility than the patient. This includesuse of bluetooth stethoscope forauscultationperformed by the telepresenter that the telemedicine provider can hear if described in the physical exam. Quarantine Officer contact information: Please call [facility] Center . (Phone Number For Physician Use Only) After establishing a telemedicine visit, patient was: Patient was verified with two unique identifiers Time Spent with Patient: Subsequent => 25 min TTE w/o vegetation or valve abnormalities . No Gu symptoms Occasional tooth sensitivity Repeat BC 07/12 NGTD Mother at bedside. Pending dc today Physical Exam Physical Exam: Gen- NAD Heent- ATNC, anicteric sclera, R lower tooth filing. Fair dentition Neck- supple Lung- Non labored breathing, On RA Abd- soft, not tender, not distended - no suprapubic tenderness, no flank pain. Ext- No edema Skin- no rash Neuro- AAO times 3 Psych- cooperative, normal mood. Results & Data Vital Signs (Past 12 Hours) Vital Signs Temp Pulse Pulse Resp BP Pulse Ox O2 Del Method 07/15/24 07:49 36.5 C 71 14 105/62 98 Room Air 07/15/24 07:00 77 07/15/24 03:36 36.7 C 84 20 99/65 L 98 Room Air 07/15/24 00:18 36.3 C L 81 20 92/56 L 97 Room Air 07/14/24 23:35 76 Laboratory Results Laboratory Results - last 48 hr 07/14/24 05:33 WBC 5.95 RBC 3.90 L Hgb 11.5 L Hct 34.4 L MCV 88.2 MCH 29.5 MCHC 33.4 RDW Std Deviation 38.8 RDW Coeff of Lizzeth 12.1 Plt Count 250 MPV 9.9 Immature Gran % (Auto) 0.7 Neut % (Auto) 38.6 Lymph % (Auto) 50.4 Bollinger % (Auto) 5.9 Eos % (Auto) 3.2 Baso % (Auto) 1.2 Neut # (Auto) 2.30 Lymph # (Auto) 3.00 Bollinger # (Auto) 0.35 Eos # (Auto) 0.19 Baso # (Auto) 0.07 Immature Gran # (Auto) 0.04 Sodium 139 Potassium 4.1 Chloride 106 Carbon Dioxide 27 Anion Gap 6 BUN 10 Creatinine 0.95 Est Cr Clr Drug Dosing 79.3 eGFR 85.80 BUN/Creatinine Ratio 10.5 Glucose 80 Calcium 8.8 Total Bilirubin 0.3 AST 11 L ALT 6 L Alkaline Phosphatase 34 Total Protein 6.1 Albumin 3.5 Globulin 2.6 Albumin/Globulin Ratio 1.3 Diagnostic Findings Microbiology 07/12/24 18:06 Blood Aerobic Blood Culture - Preliminary No growth in Aerobic bottle after 48 hours. 07/12/24 18:06 Blood Anaerobic Blood Culture - Final 07/12/24 17:03 Blood Aerobic Blood Culture - Preliminary No growth in Aerobic bottle after 48 hours. 07/12/24 17:03 Blood Anaerobic Blood Culture - Preliminary No growth in Anaerobic bottle after 48 hours. 07/10/24 17:08 Blood Aerobic Blood Culture - Preliminary Streptococcus mitis/oralis grp Rothia mucilaginosa Staphylococcus epidermidis 07/10/24 17:08 Blood Anaerobic Blood Culture - Preliminary No growth in Anaerobic bottle after 48 hours. 07/10/24 17:08 Blood Aerobic Blood Culture - Preliminary Gram positive cocci clusters 07/10/24 17:08 Blood Anaerobic Blood Culture - Final 07/10/24 15:26 Urine,Clean Catch Urine Culture - Final Escherichia coli Medications Administered Home Medications Medication Instructions Recorded Confirmed Last Taken norethindrone acetate 1 mg-ethinyl 1 tab PO DAILY 06/23/24 07/10/24 06/23/24 estradiol 20 mcg tablet () 1 Active Medications Generic Name Dose Route Start Last Admin Trade Name Freq PRN Reason Stop Dose Admin Acetaminophen 650 mg 07/10/24 18:15 07/10/24 20:20 Acetaminophen 325 Mg Tab PO 08/09/24 18:14 650 mg Q4H PRN Administration Pain or Fever Miscellaneous 1 each 07/13/24 09:00 07/15/24 08:04 --Patient's Own Oral Contraceptive PO 08/12/24 08:59 1 each DAILY MARISOL Administration (3) Sepsis Sepsis acute organ dysfunction status: unspecified Sepsis type: sepsis due to unspecified organism Qualified Code(s): A41.9 - Sepsis, unspecified organism
[2024-07-15 11:12] VITALS: BP 106/62; PULSE 69; TEMP 97.9
[2024-07-15] MEDS: ERTAPENEM 1000MG 1,000 MG/10 ML SYR IV SCH (12:33)
--- NOTE | 2024-07-15 12:59 | Billing Data ---
Date of Service July 15, 2024 Coding Level of Care Code 12585 IN/OBS DISCH 30 MIN/LESS
== END 2024-07-15 13:30 | disposition home or self-care (01) | DRG 872 ==
LOC: ED 14:44 → SUATTDRO 17:20 → 2N 17:20